=== PATIENT | male | born 1945 | race Caucasian/White ===

== ENCOUNTER 2025-06-30 08:16 | Observation (INO) ==
[2025-06-30] MEDS ORDERED: KETAMINE HCL ONE (08:20)
--- NOTE | 2025-06-30 09:37 | EKG ---
Test Reason : pre-op Blood Pressure : */* mmHG Vent. Rate : 78 BPM Atrial Rate : 78 BPM P-R Int : 262 ms QRS Dur : 84 ms QT Int : 402 ms P-R-T Axes : 71 75 67 degrees QTc Int : 458 ms Sinus rhythm with 1st degree AV block Otherwise normal ECG No previous ECGs available Confirmed by Tushar Lauren MD ([id number]) on 06/30/2025 10:55:09 AM Referred By: Confirmed By: Tushar Lauren MD
[2025-06-30 09:47] VITALS: BMI 21.0
[2025-06-30 09:59] LABS: MEAN PLATELET VOLUME 7.6 fL (7.4-11.0); RED CELL DISTRIBUTION WIDTH 14.8 % (11.6-16.5)
[2025-06-30 10:03] LABS: INR 1.03 (0.8-1.3)
[2025-06-30] MEDS ORDERED: ZANAFLEX PO PRN (10:03)
[2025-06-30] MEDS ORDERED: ALPRAZOLAM ODT PO PRN (10:03)
[2025-06-30 10:08] LABS: COR CA(FOR HYPOALB) 9.5 mg/dL (8.5-10.1); CREATININE 1.09 mg/dL (0.70-1.30); eGFR NON BLACK RACES > 60 (>60)
[2025-06-30] MEDS ORDERED: PROVENTIL NEB TX 0.083% 2.5MG/ 3ML NEB PRN (10:24)
[2025-06-30] MEDS: LR 1,000 ML IV 1,000 ML IV SCH (11:04)
[2025-06-30] MEDS: LOVENOX INJ 60 MG SYR SC SCH (11:10)
--- NOTE | 2025-06-30 11:13 | DR.CONSULT ---
CONSULT Consultation for Day of: Date: 06/30/25 Chief Complaint Chief Complaint: pre-op clearance Allergies Allergies Allergy/AdvReac Type Severity Reaction Status Date / Time Iodinated Contrast Media AdvReac Unknown Verified 06/30/25 09:26 History of Present Illness History of Present Illness: Patient is a 80-year-old male with a past medical history of peripheral vascular disease, COPD, tobacco use, depression, anxiety and chronic pain was directly admitted by vascular due to abnormal CTA lower extremity showing occlusion. Patient will be requiring vascular intervention in both lower extremities. He denies having any history of CAD or CVA. He does have emphysema, uses nebulizer and inhaler. Denies any cardiopulmonary symptoms including chest pain or shortness of breath. He does report leg pain with exertion. Medicine consulted for preop clearance. Plan: Will order routine labs, EKG and chest x-ray. Consult cardiology for clearance. Intervention planned as per vascular. Medications Home Medications: Iodinated Contrast Media Adverse Reaction (Unknown, Verified 06/30/25 09:26) CONTINUE taking the following medications tizanidine 4 mg tablet 4 mg PO QDAY PRN 06/30/25 [History] Review of Systems Constitutional: No Symptoms Reported Eyes: No Symptoms Reported ENT: No Symptoms Reported Respiratory: No Symptoms Reported Cardiovascular: No Symptoms Reported Gastrointestinal: No Symptoms Reported Genitourinary: No Symptoms Reported Musculoskeletal: Leg Pain Skin: No Symptoms Reported Neurological: No Symptoms Reported Physical Exam Vital Signs: Vital Signs Temperature 97.7 F Pulse Rate [Left] 89 Respiratory Rate 19 Blood Pressure [Right Arm] 183/77 O2 Sat by Pulse Oximetry 98 Oriented: Normal Respiratory: Clear Throughout Cardiovascular: Normal Auscultation: Bowel Sounds: Normal Palpation: Normal Tenderness: Normal Skin: Normal Musculoskeletal: Normal Psychiatric: Normal Mood Description: Calm Affect: Normal Speech Pattern: Clear and Appropriate Plan (1) PVD (peripheral vascular disease): Status: Acute (2) Tobacco use: Status: Acute (3) BPH (benign prostatic hyperplasia): Status: Chronic Qualifiers: Lower urinary tract symptom presence: unspecified whether lower urinary tract symptoms present Qualified Code(s): N40.0 - Benign prostatic hyperplasia without lower urinary tract symptoms (4) Chronic obstructive pulmonary disease: Status: Chronic Qualifiers: COPD type: unspecified COPD Qualified Code(s): J44.9 - Chronic obstructive pulmonary disease, unspecified
--- NOTE | 2025-06-30 12:10 | RAD ---
EXAM: CHEST, 1 VIEW HISTORY: PRE-OP; COMPARISON: No relevant prior studies were available for comparison at the time of interpretation. TECHNIQUE: CHEST, 1 VIEW FINDINGS: Chest: Lines and tubes: None Mediastinum: Cardiac and mediastinal shadow is within normal limits for size and contour. Pulmonary vessels: No pulmonary vascular congestion. Lung comer: Interstitial markings and hyperinflation of the lungs with diaphragmatic flattening. Increased biapical predominant interstitial lung markings Pleura: No effusion. No pneumothorax. Bones and soft tissues: No acute osseous or soft tissue abnormality. IMPRESSION: 1. Findings suggest interstitial lung disease THIS IS AN ELECTRONICALLY VERIFIED FINAL REPORT 06/30/2025 12:06 PM - Electronically signed by Adan De León MD
[2025-06-30] MEDS: CATAPRES TAB 0.1 MG PO ONE (12:36)
--- NOTE | 2025-06-30 13:16 | DR.CONSULT ---
CONSULT Consultation for Day of: Date: 06/30/25 Chief Complaint Chief Complaint: preop clearance Allergies Allergies Allergy/AdvReac Type Severity Reaction Status Date / Time Iodinated Contrast Media AdvReac Unknown Verified 06/30/25 09:26 History of Present Illness History of Present Illness: 80 yo male- admitted for severe B claudication- cta shows severe PVD- smoked 2 plus packs/day since teenager- did stop smoking month ago- on no asa/no chol pill/no bp pill- states cuts his grass with pushmower ( 1/2 acre)- limited by claudication/sob no CP Social History Type of Tobacco Use: Cigarettes Alcohol Use: None Drug Use: None Medications Home Medications: Iodinated Contrast Media Adverse Reaction (Unknown, Verified 06/30/25 09:26) CONTINUE taking the following medications tizanidine 4 mg tablet 4 mg PO QDAY PRN 06/30/25 [History] Physical Exam Vital Signs: Vital Signs Temperature 97.8 F Temperature 97.8 F Temperature 97.7 F Pulse Rate [Left] 73 Pulse Rate [Left] 73 Pulse Rate [Left] 89 Respiratory Rate 18 Respiratory Rate 18 Respiratory Rate 19 Blood Pressure [Right Arm] 140/70 Blood Pressure [Right Arm] 160/82 Blood Pressure [Right Arm] 183/77 O2 Sat by Pulse Oximetry 100 O2 Sat by Pulse Oximetry 100 O2 Sat by Pulse Oximetry 98 alert ox3 B bruits rrr jose no edema/poor pulses Labs: wbc 6.1 hct 41 bnp 106 cr 1.09 k 4.3 ldl 12/09 81 hdl 78 CXR: interstitial lung disease/copd EKG: nsr first degree avb echo/carotid pending Plan (1) PVD (peripheral vascular disease): Status: Acute Narrative Support Text: preop clearance: high risk not prohibitive Plan: check echo/carotids- add asa/statin and 2 antianginals to protect heart- will not use BB due to lung issues (2) Tobacco use: Status: Acute (3) Chronic obstructive pulmonary disease: Status: Chronic Qualifiers: COPD type: unspecified COPD Qualified Code(s): J44.9 - Chronic obstructive pulmonary disease, unspecified (4) Interstitial lung disease: Status: Acute (5) Hyperlipidemia: Status: Acute Narrative Support Text: pvd-add statin (6) Preop cardiovascular exam: Status: Acute
[2025-06-30] MEDS: ASPIRIN 81 MG CHEWTAB PO SCH (13:36)
[2025-06-30] MEDS: NORVASC TAB 2.5 MG PO SCH (13:36)
[2025-06-30] MEDS: NORVASC TAB 2.5 MG ONE (13:39)
[2025-06-30] MEDS: NITRODUR PATCH 0.2 MG/HR TD ONE (14:27)
--- NOTE | 2025-06-30 15:50 | DR.UPDATE ---
H&P UPDATE (1) PVD (peripheral vascular disease): History and Physical Update: History and Physical reviewed and patient examined. Changes noted: NO Yes with the following: (2) Tobacco use: History and Physical Update: History and Physical reviewed and patient examined. Changes noted: NO Yes with the following: (3) Chronic obstructive pulmonary disease: History and Physical Update: History and Physical reviewed and patient examined. Changes noted: NO Yes with the following: (4) Interstitial lung disease: History and Physical Update: History and Physical reviewed and patient examined. Changes noted: NO Yes with the following: (5) Hyperlipidemia: History and Physical Update: History and Physical reviewed and patient examined. Changes noted: NO Yes with the following: (6) Preop cardiovascular exam: History and Physical Update: History and Physical reviewed and patient examined. Changes noted: NO Yes with the following: Review Yes Any changes to H&P?: No Changes noted:: Patient known to have bilateral external iliac artery occlusions and bilateral superficial femoral artery occlusions and was scheduled to be admitted last week but did not show up for admission. He showed up today for admission and evaluation and treatment of these vascular problems . He has had no change in his health or physical exam since then. Patient was examined?: Yes
[2025-06-30] MEDS: NITRODUR PATCH 0.2 MG/HR ONE (17:41)
[2025-06-30] MEDS: PRAVACHOL PO SCH (20:04)
[2025-06-30] MEDS: REMOVE NITROGLYCERIN PATCH XX SCH (20:32)
[2025-07-01 04:49] LABS: MEAN PLATELET VOLUME 7.7 fL (7.4-11.0); RED CELL DISTRIBUTION WIDTH 15.3 % (11.6-16.5)
[2025-07-01 04:55] LABS: COR CA(FOR HYPOALB) 9.3 mg/dL (8.5-10.1); CREATININE 0.96 mg/dL (0.70-1.30); eGFR NON BLACK RACES > 60 (>60)
[2025-07-01] MEDS: FLOMAX PO SCH (08:19)
[2025-07-01] MEDS: LEXAPRO PO SCH (08:19)
[2025-07-01] MEDS: LEXAPRO ONE (08:21)
[2025-07-01] MEDS: NORVASC TAB 2.5 MG ONE (08:21)
--- NOTE | 2025-07-01 09:51 | PCM.PROG ---
Progress Note Progress Note for Day of Date of Exam: 07/01/25 Subjective Subjective: Patient seen at bedside, no acute events overnight. He is currently admitted for vascular intervention of severe PVD. Cardio consulted for clearance, echo and carotid US done this morning. Patient denies any complaints. Labs/imaging reviewed: -WBC 5.9 Hgb 12.3 Plt 239 K 4.2 -CXR: ILD Plan: follow echo and carotid US results. Monitor BP. Follow cardio and vascular recommendations. Continue home meds. Cardio added asa, statin and norvasc. Replace electrolytes as per protocol. Monitor AM labs/imaging. Past Medical Family Social History Allergies: Allergies Iodinated Contrast Media Adverse Reaction (Unknown, Verified 06/30/25 09:26) PT STATED HE FELT LIKE HE WAS DYING AFTER RECEIVING CONTRAST FOR CTA. Vital Signs and I&O's Vital Signs: Vital Signs Temperature 97.4 F Temperature 98 F Pulse Rate [Left] 86 Pulse Rate [Left] 79 Respiratory Rate 19 Respiratory Rate 18 Blood Pressure [Right Arm] 137/70 Blood Pressure [Right Arm] 123/62 O2 Sat by Pulse Oximetry 99 O2 Sat by Pulse Oximetry 94 Intake and Output: Intake & Output 06/28/25 06/29/25 06/30/25 07/01/25 23:59 23:59 23:59 23:59 Intake Total 1000 / 1000 602 / 602 Balance 1000 / 1000 602 / 602 Physical Exam Oriented: Normal Respiratory: Generalized and Diminished Cardiovascular: Normal Auscultation: Bowel Sounds: Normal Palpation: Normal Tenderness: Normal Skin: Normal Musculoskeletal: Normal Psychiatric: Normal Mood Description: Calm Affect: Normal Speech Pattern: Clear and Appropriate Laboratory and Diagnostics 07/01/25 04:30 07/01/25 04:30 Labs: Laboratory WBC 5.9 X10^3/uL (3.6-10.0) 07/01/25 04:30 RBC 4.47 X10^6/uL (4.7-6.0) L 07/01/25 04:30 Hgb 12.3 g/dL (13.5-18.0) L 07/01/25 04:30 Hct 36.4 % (42.0-54.0) L 07/01/25 04:30 MCV 81.4 fL (80.0-100.0) 07/01/25 04:30 MCH 27.4 pg (27.0-34.0) 07/01/25 04:30 MCHC 33.7 g/dL (33.0-35.0) 07/01/25 04:30 RDW 15.3 % (11.6-16.5) 07/01/25 04:30 Plt Count 239 X10^3/uL (150.0-450.0) 07/01/25 04:30 MPV 7.7 fL (7.4-11.0) 07/01/25 04:30 Neut % (Auto) 73.0 % (42.0-75.0) 07/01/25 04:30 Lymph % (Auto) 12.7 % (21.0-51.0) L 07/01/25 04:30 [place] % (Auto) 8.7 % (0.0-13.0) 07/01/25 04:30 Eos % (Auto) 3.9 % (0.9-2.9) H 07/01/25 04:30 Baso % (Auto) 1.7 % (0.2-1.0) H 07/01/25 04:30 Neut # (Auto) 4.3 x10^3/uL (2.2-4.8) 07/01/25 04:30 Lymph # (Auto) 0.8 X10^3/uL (1.3-2.9) L 07/01/25 04:30 [place] # (Auto) 0.5 x10^3/uL (0.3-0.8) 07/01/25 04:30 Eos # (Auto) 0.2 x10^3/uL (0.0-0.2) 07/01/25 04:30 Baso # (Auto) 0.1 X10^3/uL (0.0-0.1) 07/01/25 04:30 Absolute Nucleated RBC 0.2 /100WBC 07/01/25 04:30 PT 13.6 SECONDS (11.8-14.3) 06/30/25 09:46 INR Target Range - 06/30/25 09:46 INR 1.03 (0.8-1.3) 06/30/25 09:46 APTT 30.5 SECONDS (22.9-36.5) 06/30/25 09:46 PTT Comment - 06/30/25 09:46 Sodium 136 mmol/L (136-145) 07/01/25 04:30 Corrected Sodium TNP 07/01/25 04:30 Potassium 4.2 mmol/L (3.5-5.1) 07/01/25 04:30 Chloride 103 mmol/L (98-107) 07/01/25 04:30 Carbon Dioxide 26.2 mmol/L (21-32) 07/01/25 04:30 BUN 7 mg/dL (7-18) 07/01/25 04:30 Creatinine 0.96 mg/dL (0.70-1.30) 07/01/25 04:30 Est GFR (MDRD) Af Amer > 60 (>60) 07/01/25 04:30 Est GFR (MDRD) Non-Af > 60 (>60) 07/01/25 04:30 Glucose 86 mg/dL (65-99) 07/01/25 04:30 Calcium 8.1 mg/dL (8.5-10.1) L 07/01/25 04:30 Corrected Calcium 9.3 mg/dL (8.5-10.1) 07/01/25 04:30 Total Bilirubin 0.70 mg/dL (0.2-1.0) 07/01/25 04:30 AST 27 Units/L (15-37) 07/01/25 04:30 ALT 14 Units/L (12-78) 07/01/25 04:30 Alkaline Phosphatase 102 Units/L (46-116) 07/01/25 04:30 B-Natriuretic Peptide 106 pg/mL (0-79) H 06/30/25 09:46 Total Protein 5.8 g/dL (6.4-8.2) L 07/01/25 04:30 Albumin 2.5 g/dL (3.4-5.0) L 07/01/25 04:30 Globulin 3.3 g/dL (2.5-4.5) 07/01/25 04:30 Albumin/Globulin Ratio 0.8 Ratio (1.1-2.1) L 07/01/25 04:30 Plan (1) PVD (peripheral vascular disease): Status: Acute (2) Tobacco use: Status: Acute (3) Chronic obstructive pulmonary disease: Status: Chronic Qualifiers: COPD type: unspecified COPD Qualified Code(s): J44.9 - Chronic obstructive pulmonary disease, unspecified (4) Interstitial lung disease: Status: Acute (5) Hyperlipidemia: Status: Acute (6) Preop cardiovascular exam: Status: Acute
--- NOTE | 2025-07-01 12:38 | NOTE.SOAP ---
Soap Note Note for Day of Date of Exam: 07/01/25 Subjective Data Subjective Data: 10-year-old male heavy smoker who admitted with rest pain both lower extremities noted by CT angiogram to have severe disease of both external iliac arteries as well as occlusion of both superficial femoral artery. He has been seen by cardiology and felt to be high risk but otherwise no additional testing required. Cardio started on aspirin, antianginals and amlodipine plus a statin. Has refused Lovenox at this time. He is taking aspirin daily. Objective Data Temperature: 97.4 F Pulse Rate: 93 Respiratory Rate: 19 Blood Pressure: 156/67 O2 Sat by Pulse Oximetry: 97 Objective Data: No palpable pulses either groin or either ankle. Assessment Assessment: Severe disease bilateral external iliac arteries, bilateral supe rficial artery occlusions with significant ischemia both lower extremities Plan Plan: Plan bilateral iliac artery stenting tomorrow. Patient will be discharged after that and we will plan sequential interventions of the superficial femoral artery occlusions to be done at a later time.
[2025-07-01] MEDS: HIBICLENS WASH EXT ONE (20:27)
[2025-07-02 04:52] LABS: MEAN PLATELET VOLUME 7.6 fL (7.4-11.0); RED CELL DISTRIBUTION WIDTH 15.0 % (11.6-16.5)
[2025-07-02 05:02] LABS: COR CA(FOR HYPOALB) 9.4 mg/dL (8.5-10.1); CREATININE 0.87 mg/dL (0.70-1.30); eGFR NON BLACK RACES > 60 (>60)
[2025-07-02] MEDS: LR 1,000 ML IV 1,000 ML IV ONE ×2 (07:15→12:31)
[2025-07-02] MEDS: NS 100 ML IV 100 ML ONE (07:16)
[2025-07-02] MEDS: VERSED ONE (07:17)
[2025-07-02] MEDS: ANCEF VIAL 1 GRAM ONE (07:17)
[2025-07-02] MEDS: FENTANYL VIAL INJ 100 mcg ONE (07:18)
[2025-07-02] MEDS: DIPRIVAN VIAL 20 ML ONE ×2 (07:18→09:38)
[2025-07-02] MEDS: OFIRMEV IV 1000 MG VIAL 1,000 MG/100 ML VIAL IV ONE (07:18)
[2025-07-02] MEDS: PRECEDEX INJ VIAL ONE (07:18)
[2025-07-02] MEDS: HEPARIN SODIUM INJ 5000 UNITS ONE ×2 (07:19→09:35)
[2025-07-02] MEDS: XYLOCAINE 2 % (PLAIN) ONE (07:22)
[2025-07-02] MEDS: DECADRON INJ ONE (07:26)
[2025-07-02] MEDS: ZOFRAN INJ 4 MG VIAL ONE (07:26)
[2025-07-02] MEDS: REGLAN INJ 10 MG VIAL ONE (07:26)
[2025-07-02] MEDS: PEPCID 20 MG VIAL ONE (07:28)
[2025-07-02] MEDS: LR 1,000 ML IV 500 ML IV PRN (07:30)
[2025-07-02] MEDS: DUONEB 0.5 MG/3 MG (3 mL) NEB ONE (07:30)
[2025-07-02] MEDS: ANCEF VIAL 1 GRAM IV PRN (07:42)
[2025-07-02] MEDS ORDERED: XYLOCAINE 2 % (PLAIN) PRN (07:46)
[2025-07-02] MEDS: DIPRIVAN VIAL 100 ML IVP PRN (07:47)
[2025-07-02] MEDS: KETAMINE HCL IVP PRN (07:47)
[2025-07-02] MEDS: PRECEDEX INJ VIAL IVP PRN (07:47)
[2025-07-02] MEDS: ZOFRAN INJ 4 MG VIAL IVP PRN (07:49)
[2025-07-02] MEDS: VERSED IVP PRN (07:54)
[2025-07-02] MEDS: FENTANYL VIAL INJ 100 mcg IVP PRN ×2 (07:56→09:21)
[2025-07-02] MEDS: PEPCID 20 MG VIAL IVP PRN (08:00)
[2025-07-02] MEDS: REGLAN INJ 10 MG VIAL IVP PRN (08:03)
[2025-07-02] MEDS: EPHEDRINE SULFATE INJ ONE (08:03)
[2025-07-02] MEDS: EPHEDRINE SULFATE INJ IVP PRN ×2 (08:04→09:28)
[2025-07-02] MEDS: NEO-SYNEPHRINE INJ ONE (08:06)
[2025-07-02] MEDS: VISIPAQUE 50 ML ONE (08:10)
[2025-07-02] MEDS: HEPARIN 1,000 UNIT/500 ML-NS 3,000 UNIT/1,500 ML IV.SOLN ONE (08:10)
[2025-07-02] MEDS: VISIPAQUE 100 ML ONE ×2 (08:10→10:08)
[2025-07-02] MEDS: MARCAINE 0.5% ONE (08:10)
[2025-07-02] MEDS: NEO-SYNEPHRINE INJ IVP PRN ×2 (08:16→09:28)
[2025-07-02] MEDS: HESPAN IV IN NS 500 ML IV ONE (09:27)
[2025-07-02] MEDS: HEPARIN SODIUM INJ 5000 UNITS IVP PRN (09:35)
[2025-07-02] MEDS ORDERED: BENADRYL INJ 50 MG VIAL IVP PRN (09:53)
[2025-07-02] MEDS ORDERED: BARHEMSYS INJ IVP PRN (09:53)
[2025-07-02] MEDS ORDERED: DILAUDID INJ IVP PRN (09:53)
[2025-07-02] MEDS ORDERED: ZOFRAN INJ 4 MG VIAL IVP PRN (09:53)
[2025-07-02] MEDS: NS 1,000 ML IV 1,000 ML ONE (09:53)
[2025-07-02] MEDS: PROTAMINE SULFATE 50 MG VIAL ONE (10:10)
[2025-07-02] MEDS: PROTAMINE SULFATE 50 MG VIAL IVP PRN (10:11)
--- NOTE | 2025-07-02 10:45 | OR.IMMED ---
IMMEDIATE POST-OP NOTE Immediate Post-Op Note Date of surgery/procedure: 07/02/25 Pre-Op Diagnosis: Critical ischemia both lower extremities. Bilateral external iliac artery occlusions Post-Op Diagnosis: Same Procedure: Approach from the left brachial artery, aortogram, bilateral lower extremity arteriiograms, stenting of the right external and right common iliac artery, stenting of the left external iliac artery Description of Procedure: dictated Surgeon/Supervisor Special Education: Gerry Findings: Bilateral external iliac artery occlusions, patent right common femo ral artery, occluded left common femoral artery, bilateral superficial artery occlusions with reconstitution of the popliteal arteries below the knees bilaterally with two-vessel runoff bilateral Estimated Blood Loss: 200cc Complications: none Discharge Progress Notes: To PACU then to floor. Sequentially removed tibial band around the puncture site of the left brachial artery puncture
[2025-07-02] MEDS: LR 1,000 ML IV 1,000 ML IV SCH (11:33)
[2025-07-02] MEDS ORDERED: LOPRESSOR INJ 5 MG AMP ONE (14:23)
[2025-07-02] MEDS: LOPRESSOR INJ 5 MG AMP IVP ONE (14:31)
--- NOTE | 2025-07-02 14:33 | EKG ---
Test Reason : tachycardia Blood Pressure : */* mmHG Vent. Rate : 90 BPM Atrial Rate : 90 BPM P-R Int : 266 ms QRS Dur : 86 ms QT Int : 378 ms P-R-T Axes : 71 56 78 degrees QTc Int : 462 ms Sinus rhythm with 1st degree AV block Nonspecific T wave abnormality Prolonged QT Abnormal ECG When compared with ECG of 30-JUN-2025 09:35, No significant change was found Confirmed by Tushar Lauren MD ([id number]) on 07/02/2025 2:36:51 PM Referred By: Confirmed By: Tushar Lauren MD
[2025-07-02] MEDS: NS 500 ML IV 500 ML IV ONE (15:02)
--- NOTE | 2025-07-02 17:29 | W.DIS.FURT ---
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 Patient admitted on Sunday for evaluation and was seen by cardiology and cleared him for procedure. He was started on medications for blood pressure and a statin for his cholesterol. He was taken to the operating suite on July 02 where he underwent bilateral external iliac stenting. He will need superficial femoral artery atherectomy and possible drug-eluting balloon angioplasty, possible stenting .Those to be done sequentially in the future. He may still require left open femoral endarterectomy and patch angioplasty as well. Postprocedure he had 1 small run of afibrillation treated with labetalol but the internal medicine design sales consultant felt that he could be discharged home safely. He will be discharged home on his usual medications plus aspirin 80 mg daily. Will follow-up with Dr. Gagan Garrett in 1 week. I have encouraged him not to continue smoking. Vital Signs: Vital Signs (72 hours) 06/30/25 08:40 06/30/25 08:40 06/30/25 10:33 Temperature 97.7 F Pulse Rate Pulse Rate [Left] 89 Respiratory Rate 19 Blood Pressure Blood Pressure [Left Arm] Blood Pressure [Right Arm] 183/77 O2 Sat by Pulse Oximetry 98 Oxygen Delivery Method Room Air Room Air Room Air Oxygen Flow Rate 06/30/25 11:45 06/30/25 13:04 06/30/25 15:02 Temperature 97.8 F 97.8 F 97.4 F L Pulse Rate Pulse Rate [Left] 73 73 73 Respiratory Rate 18 18 18 Blood Pressure Blood Pressure [Left Arm] Blood Pressure [Right Arm] 160/82 140/70 119/57 O2 Sat by Pulse Oximetry 100 100 98 Oxygen Delivery Method Room Air Room Air Room Air Oxygen Flow Rate 06/30/25 19:00 06/30/25 20:00 07/01/25 00:00 Temperature 97.5 F L 97.9 F Pulse Rate Pulse Rate [Left] 71 77 Respiratory Rate 18 17 Blood Pressure Blood Pressure [Left Arm] Blood Pressure [Right Arm] 130/67 147/67 O2 Sat by Pulse Oximetry 99 97 Oxygen Delivery Method Room Air Room Air Room Air Oxygen Flow Rate 07/01/25 04:00 07/01/25 07:00 07/01/25 07:38 Temperature 98 F 97.4 F L Pulse Rate Pulse Rate [Left] 79 86 Respiratory Rate 18 19 Blood Pressure Blood Pressure [Left Arm] Blood Pressure [Right Arm] 123/62 137/70 O2 Sat by Pulse Oximetry 94 L 99 Oxygen Delivery Method Room Air Room Air Room Air Oxygen Flow Rate 07/01/25 11:48 07/01/25 12:37 07/01/25 15:37 Temperature 97.4 F L 97.4 F L 97.7 F Pulse Rate 93 H Pulse Rate [Left] 93 H 79 Respiratory Rate 19 19 19 Blood Pressure 156/67 Blood Pressure [Left Arm] Blood Pressure [Right Arm] 156/67 149/67 O2 Sat by Pulse Oximetry 97 97 96 Oxygen Delivery Method Room Air Room Air Oxygen Flow Rate 07/01/25 19:00 07/01/25 20:00 07/01/25 20:20 Temperature 97.5 F L Pulse Rate Pulse Rate [Left] 78 Respiratory Rate 18 Blood Pressure Blood Pressure [Left Arm] 158/73 Blood Pressure [Right Arm] O2 Sat by Pulse Oximetry 97 Oxygen Delivery Method Room Air Room Air Room Air Oxygen Flow Rate 07/02/25 00:00 07/02/25 04:00 07/02/25 07:00 Temperature 97.6 F 97.6 F Pulse Rate Pulse Rate [Left] 89 86 Respiratory Rate 18 18 Blood Pressure Blood Pressure [Left Arm] 123/58 127/61 Blood Pressure [Right Arm] O2 Sat by Pulse Oximetry 95 95 Oxygen Delivery Method Room Air Room Air Room Air Oxygen Flow Rate 07/02/25 07:19 07/02/25 10:25 07/02/25 10:30 Temperature 97.6 F Pulse Rate 86 93 H 80 Pulse Rate [Left] Respiratory Rate 18 18 17 Blood Pressure 157/86 114/57 116/56 Blood Pressure [Left Arm] Blood Pressure [Right Arm] O2 Sat by Pulse Oximetry 95 97 99 Oxygen Delivery Method Room Air Nasal Cannula Nasal Cannula Oxygen Flow Rate 07/02/25 10:35 07/02/25 10:35 07/02/25 10:40 Temperature 97.6 F 98.2 F Pulse Rate 80 79 80 Pulse Rate [Left] Respiratory Rate 18 17 18 Blood Pressure 96/50 96/50 85/48 Blood Pressure [Left Arm] Blood Pressure [Right Arm] O2 Sat by Pulse Oximetry 99 Oxygen Delivery Method Nasal Cannula Oxygen Flow Rate 07/02/25 10:40 07/02/25 10:45 07/02/25 10:45 Temperature 98.2 F Pulse Rate 82 85 85 Pulse Rate [Left] Respiratory Rate 17 17 17 Blood Pressure 85/48 111/54 111/54 Blood Pressure [Left Arm] Blood Pressure [Right Arm] O2 Sat by Pulse Oximetry 99 99 Oxygen Delivery Method Nasal Cannula Nasal Cannula Oxygen Flow Rate 07/02/25 10:50 07/02/25 10:55 07/02/25 10:55 Temperature 97.8 F Pulse Rate 84 84 83 Pulse Rate [Left] Respiratory Rate 17 18 16 Blood Pressure 110/54 97/51 101/54 Blood Pressure [Left Arm] Blood Pressure [Right Arm] O2 Sat by Pulse Oximetry 97 97 Oxygen Delivery Method Nasal Cannula Nasal Cannula Oxygen Flow Rate 07/02/25 11:00 07/02/25 11:05 07/02/25 11:05 Temperature 98.2 F 98.0 F 98.2 F Pulse Rate 84 86 86 Pulse Rate [Left] Respiratory Rate 18 18 18 Blood Pressure 95/50 97/51 95/55 Blood Pressure [Left Arm] Blood Pressure [Right Arm] O2 Sat by Pulse Oximetry 99 99 Oxygen Delivery Method Nasal Cannula Nasal Cannula Oxygen Flow Rate 07/02/25 11:10 07/02/25 11:15 07/02/25 11:20 Temperature Pulse Rate 84 86 86 Pulse Rate [Left] Respiratory Rate 18 18 18 Blood Pressure 97/51 99/52 90/53 Blood Pressure [Left Arm] Blood Pressure [Right Arm] O2 Sat by Pulse Oximetry 99 99 99 Oxygen Delivery Method Nasal Cannula Nasal Cannula Nasal Cannula Oxygen Flow Rate 07/02/25 11:25 07/02/25 11:25 07/02/25 11:30 Temperature 98.0 F Pulse Rate 85 85 90 Pulse Rate [Left] Respiratory Rate 18 17 17 Blood Pressure 94/51 94/51 114/62 Blood Pressure [Left Arm] Blood Pressure [Right Arm] O2 Sat by Pulse Oximetry 99 99 Oxygen Delivery Method Nasal Cannula Nasal Cannula Oxygen Flow Rate 07/02/25 11:40 07/02/25 11:45 07/02/25 12:00 Temperature 98.0 F 97.8 F Pulse Rate 95 H Pulse Rate [Left] 105 H 100 H Respiratory Rate 17 20 18 Blood Pressure 128/60 Blood Pressure [Left Arm] 128/60 144/68 Blood Pressure [Right Arm] O2 Sat by Pulse Oximetry 99 98 97 Oxygen Delivery Method Nasal Cannula Nasal Cannula Nasal Cannula Oxygen Flow Rate 2 2 07/02/25 12:15 07/02/25 12:30 07/02/25 12:45 Temperature 98.4 F Pulse Rate Pulse Rate [Left] 100 H 96 H 110 H Respiratory Rate 18 20 20 Blood Pressure Blood Pressure [Left Arm] 140/60 119/56 117/60 Blood Pressure [Right Arm] O2 Sat by Pulse Oximetry 97 97 98 Oxygen Delivery Method Nasal Cannula Nasal Cannula Nasal Cannula Oxygen Flow Rate 2 2 2 07/02/25 14:15 07/02/25 14:20 07/02/25 14:21 Temperature Pulse Rate Pulse Rate [Left] 113 H 157 H 160 H Respiratory Rate Blood Pressure Blood Pressure [Left Arm] 127/57 97/58 Blood Pressure [Right Arm] O2 Sat by Pulse Oximetry 98 99 99 Oxygen Delivery Method Nasal Cannula Nasal Cannula Nasal Cannula Oxygen Flow Rate 2 2 2 07/02/25 14:23 07/02/25 14:30 07/02/25 14:34 Temperature Pulse Rate Pulse Rate [Left] 145 H 94 H 89 Respiratory Rate 16 Blood Pressure Blood Pressure [Left Arm] 104/57 116/62 109/56 Blood Pressure [Right Arm] O2 Sat by Pulse Oximetry 98 99 100 Oxygen Delivery Method Nasal Cannula Nasal Cannula Nasal Cannula Oxygen Flow Rate 2 2 2 07/02/25 14:45 07/02/25 15:45 07/02/25 16:04 Temperature Pulse Rate Pulse Rate [Left] 86 86 94 H Respiratory Rate 20 Blood Pressure Blood Pressure [Left Arm] 114/55 Blood Pressure [Right Arm] O2 Sat by Pulse Oximetry 100 100 Oxygen Delivery Method Nasal Cannula Nasal Cannula Oxygen Flow Rate 2 2 07/02/25 16:45 Temperature 98.1 F Pulse Rate Pulse Rate [Left] 93 H Respiratory Rate 20 Blood Pressure Blood Pressure [Left Arm] 124/68 Blood Pressure [Right Arm] O2 Sat by Pulse Oximetry 100 Oxygen Delivery Method Nasal Cannula Oxygen Flow Rate 2 Labs: Laboratory Last Values WBC 4.7 X10^3/uL (3.6-10.0) 07/02/25 04:36 RBC 4.31 X10^6/uL (4.7-6.0) L 07/02/25 04:36 Hgb 12.0 g/dL (13.5-18.0) L 07/02/25 04:36 Hct 35.0 % (42.0-54.0) L 07/02/25 04:36 MCV 81.3 fL (80.0-100.0) 07/02/25 04:36 MCH 27.9 pg (27.0-34.0) 07/02/25 04:36 MCHC 34.3 g/dL (33.0-35.0) 07/02/25 04:36 RDW 15.0 % (11.6-16.5) 07/02/25 04:36 Plt Count 241 X10^3/uL (150.0-450.0) 07/02/25 04:36 MPV 7.6 fL (7.4-11.0) 07/02/25 04:36 Neut % (Auto) 63.5 % (42.0-75.0) 07/02/25 04:36 Lymph % (Auto) 18.8 % (21.0-51.0) L 07/02/25 04:36 [place] % (Auto) 10.6 % (0.0-13.0) 07/02/25 04:36 Eos % (Auto) 5.1 % (0.9-2.9) H 07/02/25 04:36 Baso % (Auto) 2.0 % (0.2-1.0) H 07/02/25 04:36 Neut # (Auto) 3.0 x10^3/uL (2.2-4.8) 07/02/25 04:36 Lymph # (Auto) 0.9 X10^3/uL (1.3-2.9) L 07/02/25 04:36 [place] # (Auto) 0.5 x10^3/uL (0.3-0.8) 07/02/25 04:36 Eos # (Auto) 0.2 x10^3/uL (0.0-0.2) 07/02/25 04:36 Baso # (Auto) 0.1 X10^3/uL (0.0-0.1) 07/02/25 04:36 Absolute Nucleated RBC 0.1 /100WBC 07/02/25 04:36 PT 13.6 SECONDS (11.8-14.3) 06/30/25 09:46 INR Target Range - 06/30/25 09:46 INR 1.03 (0.8-1.3) 06/30/25 09:46 APTT 30.5 SECONDS (22.9-36.5) 06/30/25 09:46 PTT Comment - 06/30/25 09:46 Sodium 136 mmol/L (136-145) 07/02/25 04:36 Corrected Sodium TNP 07/02/25 04:36 Potassium 3.8 mmol/L (3.5-5.1) 07/02/25 04:36 Chloride 104 mmol/L (98-107) 07/02/25 04:36 Carbon Dioxide 25.8 mmol/L (21-32) 07/02/25 04:36 BUN 5 mg/dL (7-18) L 07/02/25 04:36 Creatinine 0.87 mg/dL (0.70-1.30) 07/02/25 04:36 Est GFR (MDRD) Af Amer > 60 (>60) 07/02/25 04:36 Est GFR (MDRD) Non-Af > 60 (>60) 07/02/25 04:36 Glucose 93 mg/dL (65-99) 07/02/25 04:36 Calcium 8.1 mg/dL (8.5-10.1) L 07/02/25 04:36 Corrected Calcium 9.4 mg/dL (8.5-10.1) 07/02/25 04:36 Total Bilirubin 0.50 mg/dL (0.2-1.0) 07/02/25 04:36 AST 26 Units/L (15-37) 07/02/25 04:36 ALT 16 Units/L (12-78) 07/02/25 04:36 Alkaline Phosphatase 100 Units/L (46-116) 07/02/25 04:36 B-Natriuretic Peptide 106 pg/mL (0-79) H 06/30/25 09:46 Total Protein 5.6 g/dL (6.4-8.2) L 07/02/25 04:36 Albumin 2.4 g/dL (3.4-5.0) L 07/02/25 04:36 Globulin 3.2 g/dL (2.5-4.5) 07/02/25 04:36 Albumin/Globulin Ratio 0.8 Ratio (1.1-2.1) L 07/02/25 04:36 Blood Type O POSITIVE 07/02/25 07:31 Antibody Screen Negative 07/02/25 07:31 Reason For Visit: BILATERAL ISHEMIA, TO LOWER EXTREMETIES Discharge Date Discharge Date: 07/02/25 Discharge Diagnosis All Active Problems (Updated 06/30/25 @ 13:14 by MARGARET MARIN MD) Preop cardiovascular exam (Acute) Hyperlipidemia (Acute) Interstitial lung disease (Acute) PVD (peripheral vascular disease) (Acute) Dermatitis (Acute) Annual physical exam (Acute) Tobacco use (Acute) BPH (benign prostatic hyperplasia) (Chronic) Chronic obstructive pulmonary disease (Chronic) Plan of Treatment: Continue with present treatment and follow up plan. Pt is to keep follow up appointment as instructed and take medications as ordered. Discharge Medications Discharge Medications: Iodinated Contrast Media Adverse Reaction (Unknown, Verified 06/30/25 09:26) CONTINUE taking the following medications tizanidine 4 mg tablet 4 mg PO QDAY PRN 06/30/25 [History] albuterol sulfate 90 mcg/actuation aerosol inhaler 90 mcg inhalation Q4H PRN 07/01/25 [History] meloxicam 15 mg tablet 15 mg PO QDAY 07/01/25 [History] Amlodipine, 2.5 mg daily Pravastatin 20 mg at bedtime Aspirin 81 mg daily Discharge Disposition Assessment: see hospital ourse Discharge Plan Discharge Plan Hospital Course: This is a 80-year-old male with significant tobacco abuse history who is presented with rest pain of both lower extremities and CT angiogram showing 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 Patient admitted on Sunday for evaluation and was seen by cardiology and cleared him for procedure. He was started on medications for b lood pressure and a statin for his cholesterol. He was taken to the operating suite on July 02 where he underwent bilateral external iliac stenting. He will need superficial femoral artery atherectomy and possible drug-eluting balloon angioplasty, possible stenting .Those to be done sequentially in the future. He may still require left open femoral endarterectomy and patch angioplasty as well. Postprocedure he had 1 small run of afibrillation treated with labetalol but the internal medicine design sales consultant felt that he could be discharged home safely. He will be discharged home on his usual medications plus aspirin 80 mg daily. Will follow-up with Dr. Gagan Garrett in 1 week. I have encouraged him not to continue smoking. Patient Disposition: 01 HOME, SELF-CARE Condition: Stable Health Concerns: Post Hospitalization: new medications and changes needed to prevent readmission or further decline. Pt educated and given instructions on all concerns. Care Plan Goals: Problem: Altered Tissue Perfusion Goal: Adequate Tissue Perfusion Instructions: Follow provided instructions. Follow up with primary physician as directed. Contact primary care physician or report to the closest Emergency Room if condition worsens. Plan of Treatment: Continue with present treatment and follow up plan. Pt is to keep follow up appointment as instructed and take medications as ordered. Assessment: see hospital mcourse Prescriptions: New aspirin 81 mg Tablet,Chewable 81 mg PO DAILY Qty: 240 0RF alprazolam 0.5 mg Tablet,Disintegrating 1 mg PO BID MDD 2 PRNQty: 60 1RF pravastatin 40 mg Tablet 20 mg PO HS Qty: 60 2RF amlodipine 2.5 mg Tablet 2.5 mg PO DAILY Qty: 60 2RF escitalopram oxalate 10 mg Tablet 10 mg PO DAILY Qty: 60 2RF Continued alprazolam 2 mg tablet 2 - 4 mg PO QDAY MDD 2 PRN (Reason: anxiety) 30 Days Qty: 45 0RF escitalopram oxalate 10 mg tablet 10 mg PO QDAY 30 Days Qty: 30 2RF gabapentin 100 mg capsule 100 mg PO QDAY 30 Days Qty: 30 0RF hydrocodone-acetaminophen 10-325 mg tablet 1 tab PO TID MDD 3 PRN (Reason: pain) 30 Days Qty: 90 0RF tamsulosin 0.4 mg capsule 0.8 mg PO QDAY Qty: 30 3RF tizanidine 4 mg tablet 4 mg PO QDAY PRN Rx Instructions: FreeTextSi (one) Tablet daily, as needed; Refills: 2; Provider: Raffaele Moyer meloxicam 15 mg tablet 15 mg PO QDAY albuterol sulfate 90 mcg/actuation Hfa Aerosol Inhaler 90 mcg INHALATION Q4H PRN Orders to Discharge Patient Discharge Orders: Discharge (Routine); Ordered 07/02/25 Ordered By: Shemar Garrett Follow ups/Referrals Follow ups/Referrals: João Castorena MD [Primary Care Provider, MEDICAL] - 1 WEEK Shemar Garrett [STAFF PHYSICIAN, Unknown] - 07/15/25 9:30 am Instructions Instructions: Angiogram, [id number], Leg Pain That Comes and Goes (Intermittent Claudication): What to Know, Atherosclerosis, Endovascular Therapy for Peripheral Vascular Disease: What to Know After, Preventing Problems After Surgery, Surgery to Remove Plaque from the Femoral Artery (Femoral Endarterectomy): What to Know After, Femoropopliteal Bypass Stand Alone Forms: Find Help Web Site, Post Hospital Follow Up Care Print Language: ITALIAN
[2025-07-02] MEDS: PERCOCET TAB 5/325 MG PO PRN (22:01)
[2025-07-03 05:20] LABS: MEAN PLATELET VOLUME 7.9 fL (7.4-11.0); RED CELL DISTRIBUTION WIDTH 14.8 % (11.6-16.5)
[2025-07-03 05:30] LABS: COR CA(FOR HYPOALB) 9.3 mg/dL (8.5-10.1); CREATININE 0.73 mg/dL (0.70-1.30); eGFR NON BLACK RACES > 60 (>60)
[2025-07-03] MEDS ORDERED: CONSULT PHARMACY - POTASSIUM & MAGNESIUM XX SCH (06:00)
[2025-07-03 08:07] VITALS: BP 142/64; PULSE 97; RESP 16; TEMP 97.4
[2025-07-03] MEDS: K-DUR TAB 20 MEQ PO SCH (08:12)
[2025-07-03] MEDS: MAG-OX TAB PO SCH (08:13)
[2025-07-03] MEDS: NORVASC TAB 2.5 MG ONE (08:14)
[2025-07-03] MEDS: LEXAPRO ONE (08:14)
[2025-07-03 08:36] VITALS: O2SAT 95
--- NOTE | 2025-07-09 12:46 | PCM.PROG ---
Progress Note Progress Note for Day of Date of Exam: 07/02/25 Subjective Subjective: Patient seen at bedside, no acute events overnight. He is currently admitted for vascular intervention of severe PVD. Cardio consulted and has cleared patient for procedure, which he will have this morning. Labs/imaging reviewed: Plan: Follow cardio and vascular recommendations. Monitor blood pressure. Continue home meds. Replace electrolytes as per protocol. Monitor AM labs/imaging. Past Medical Family Social History Allergies: Allergies Iodinated Contrast Media Adverse Reaction (Unknown, Verified 07/07/25 15:07) PT STATED HE FELT LIKE HE WAS DYING AFTER RECEIVING CONTRAST FOR CTA. Review of Systems ROS changes noted: see HPI Physical Exam Oriented: Normal Respiratory: Generalized and Diminished Cardiovascular: Normal Auscultation: Bowel Sounds: Normal Tenderness: Normal Skin: Normal Musculoskeletal: Normal Psychiatric: Normal Mood Description: Calm Affect: Normal Speech Pattern: Clear and Appropriate Laboratory and Diagnostics 07/03/25 04:41 07/03/25 04:41 Labs: Laboratory WBC 7.5 X10^3/uL (3.6-10.0) 07/03/25 04:41 RBC 3.32 X10^6/uL (4.7-6.0) L 07/03/25 04:41 Hgb 9.3 g/dL (13.5-18.0) L D 07/03/25 04:41 Hct 27.0 % (42.0-54.0) L 07/03/25 04:41 MCV 81.4 fL (80.0-100.0) 07/03/25 04:41 MCH 28.1 pg (27.0-34.0) 07/03/25 04:41 MCHC 34.6 g/dL (33.0-35.0) 07/03/25 04:41 RDW 14.8 % (11.6-16.5) 07/03/25 04:41 Plt Count 213 X10^3/uL (150.0-450.0) 07/03/25 04:41 MPV 7.9 fL (7.4-11.0) 07/03/25 04:41 Neut % (Auto) 76.8 % (42.0-75.0) H 07/03/25 04:41 Lymph % (Auto) 11.8 % (21.0-51.0) L 07/03/25 04:41 [place] % (Auto) 9.2 % (0.0-13.0) 07/03/25 04:41 Eos % (Auto) 1.5 % (0.9-2.9) 07/03/25 04:41 Baso % (Auto) 0.7 % (0.2-1.0) 07/03/25 04:41 Neut # (Auto) 5.7 x10^3/uL (2.2-4.8) H 07/03/25 04:41 Lymph # (Auto) 0.9 X10^3/uL (1.3-2.9) L 07/03/25 04:41 [place] # (Auto) 0.7 x10^3/uL (0.3-0.8) 07/03/25 04:41 Eos # (Auto) 0.1 x10^3/uL (0.0-0.2) 07/03/25 04:41 Baso # (Auto) 0.1 X10^3/uL (0.0-0.1) 07/03/25 04:41 Absolute Nucleated RBC 0.1 /100WBC 07/03/25 04:41 PT 13.6 SECONDS (11.8-14.3) 06/30/25 09:46 INR Target Range - 06/30/25 09:46 INR 1.03 (0.8-1.3) 06/30/25 09:46 APTT 30.5 SECONDS (22.9-36.5) 06/30/25 09:46 PTT Comment - 06/30/25 09:46 Sodium 138 mmol/L (136-145) 07/03/25 04:41 Corrected Sodium TNP 07/03/25 04:41 Potassium 3.7 mmol/L (3.5-5.1) 07/03/25 04:41 Chloride 105 mmol/L (98-107) 07/03/25 04:41 Carbon Dioxide 29.7 mmol/L (21-32) 07/03/25 04:41 BUN 5 mg/dL (7-18) L 07/03/25 04:41 Creatinine 0.73 mg/dL (0.70-1.30) 07/03/25 04:41 Est GFR (MDRD) Af Amer > 60 (>60) 07/03/25 04:41 Est GFR (MDRD) Non-Af > 60 (>60) 07/03/25 04:41 Glucose 79 mg/dL (65-99) 07/03/25 04:41 Calcium 7.7 mg/dL (8.5-10.1) L 07/03/25 04:41 Corrected Calcium 9.3 mg/dL (8.5-10.1) 07/03/25 04:41 Magnesium 1.5 mg/dL (2.0-2.9) L 07/03/25 04:41 Total Bilirubin 0.40 mg/dL (0.2-1.0) 07/03/25 04:41 AST 21 Units/L (15-37) 07/03/25 04:41 ALT 12 Units/L (12-78) 07/03/25 04:41 Alkaline Phosphatase 82 Units/L (46-116) 07/03/25 04:41 B-Natriuretic Peptide 106 pg/mL (0-79) H 06/30/25 09:46 Total Protein 4.6 g/dL (6.4-8.2) L 07/03/25 04:41 Albumin 2.0 g/dL (3.4-5.0) L 07/03/25 04:41 Globulin 2.6 g/dL (2.5-4.5) 07/03/25 04:41 Albumin/Globulin Ratio 0.8 Ratio (1.1-2.1) L 07/03/25 04:41 Blood Type O POSITIVE 07/02/25 07:31 Antibody Screen Negative 07/02/25 07:31 Plan (1) PVD (peripheral vascular disease): Status: Acute (2) Tobacco use: Status: Acute (3) Chronic obstructive pulmonary disease: Status: Chronic Qualifiers: COPD type: unspecified COPD Qualified Code(s): J44.9 - Chronic obstructive pulmonary disease, unspecified (4) Interstitial lung disease: Status: Acute (5) Hyperlipidemia: Status: Acute (6) Preop cardiovascular exam: Status: Acute
--- NOTE | 2025-07-09 12:50 | PCM.PROG ---
Progress Note Progress Note for Day of Date of Exam: 07/03/25 Subjective Subjective: Patient is s/p bilateral external iliac stenting. He will need superficial femoral artery atherectomy and possible drug-eluting balloon angioplasty, possible stenting at a later date. He is doing well and has already dressed to go home. Patient is in stable condition. Instructed follow-up with vascular outpatient. Past Medical Family Social History Allergies: Allergies Iodinated Contrast Media Adverse Reaction (Unknown, Verified 07/07/25 15:07) PT STATED HE FELT LIKE HE WAS DYING AFTER RECEIVING CONTRAST FOR CTA. Review of Systems ROS changes noted: see HPI Physical Exam Oriented: Normal Respiratory: Generalized and Diminished Cardiovascular: Normal Auscultation: Bowel Sounds: Normal Tenderness: Normal Skin: Normal Musculoskeletal: Normal Psychiatric: Normal Mood Description: Calm Affect: Normal Speech Pattern: Clear and Appropriate Laboratory and Diagnostics 07/03/25 04:41 07/03/25 04:41 Labs: Laboratory WBC 7.5 X10^3/uL (3.6-10.0) 07/03/25 04:41 RBC 3.32 X10^6/uL (4.7-6.0) L 07/03/25 04:41 Hgb 9.3 g/dL (13.5-18.0) L D 07/03/25 04:41 Hct 27.0 % (42.0-54.0) L 07/03/25 04:41 MCV 81.4 fL (80.0-100.0) 07/03/25 04:41 MCH 28.1 pg (27.0-34.0) 07/03/25 04:41 MCHC 34.6 g/dL (33.0-35.0) 07/03/25 04:41 RDW 14.8 % (11.6-16.5) 07/03/25 04:41 Plt Count 213 X10^3/uL (150.0-450.0) 07/03/25 04:41 MPV 7.9 fL (7.4-11.0) 07/03/25 04:41 Neut % (Auto) 76.8 % (42.0-75.0) H 07/03/25 04:41 Lymph % (Auto) 11.8 % (21.0-51.0) L 07/03/25 04:41 [place] % (Auto) 9.2 % (0.0-13.0) 07/03/25 04:41 Eos % (Auto) 1.5 % (0.9-2.9) 07/03/25 04:41 Baso % (Auto) 0.7 % (0.2-1.0) 07/03/25 04:41 Neut # (Auto) 5.7 x10^3/uL (2.2-4.8) H 07/03/25 04:41 Lymph # (Auto) 0.9 X10^3/uL (1.3-2.9) L 07/03/25 04:41 [place] # (Auto) 0.7 x10^3/uL (0.3-0.8) 07/03/25 04:41 Eos # (Auto) 0.1 x10^3/uL (0.0-0.2) 07/03/25 04:41 Baso # (Auto) 0.1 X10^3/uL (0.0-0.1) 07/03/25 04:41 Absolute Nucleated RBC 0.1 /100WBC 07/03/25 04:41 PT 13.6 SECONDS (11.8-14.3) 06/30/25 09:46 INR Target Range - 06/30/25 09:46 INR 1.03 (0.8-1.3) 06/30/25 09:46 APTT 30.5 SECONDS (22.9-36.5) 06/30/25 09:46 PTT Comment - 06/30/25 09:46 Sodium 138 mmol/L (136-145) 07/03/25 04:41 Corrected Sodium TNP 07/03/25 04:41 Potassium 3.7 mmol/L (3.5-5.1) 07/03/25 04:41 Chloride 105 mmol/L (98-107) 07/03/25 04:41 Carbon Dioxide 29.7 mmol/L (21-32) 07/03/25 04:41 BUN 5 mg/dL (7-18) L 07/03/25 04:41 Creatinine 0.73 mg/dL (0.70-1.30) 07/03/25 04:41 Est GFR (MDRD) Af Amer > 60 (>60) 07/03/25 04:41 Est GFR (MDRD) Non-Af > 60 (>60) 07/03/25 04:41 Glucose 79 mg/dL (65-99) 07/03/25 04:41 Calcium 7.7 mg/dL (8.5-10.1) L 07/03/25 04:41 Corrected Calcium 9.3 mg/dL (8.5-10.1) 07/03/25 04:41 Magnesium 1.5 mg/dL (2.0-2.9) L 07/03/25 04:41 Total Bilirubin 0.40 mg/dL (0.2-1.0) 07/03/25 04:41 AST 21 Units/L (15-37) 07/03/25 04:41 ALT 12 Units/L (12-78) 07/03/25 04:41 Alkaline Phosphatase 82 Units/L (46-116) 07/03/25 04:41 B-Natriuretic Peptide 106 pg/mL (0-79) H 06/30/25 09:46 Total Protein 4.6 g/dL (6.4-8.2) L 07/03/25 04:41 Albumin 2.0 g/dL (3.4-5.0) L 07/03/25 04:41 Globulin 2.6 g/dL (2.5-4.5) 07/03/25 04:41 Albumin/Globulin Ratio 0.8 Ratio (1.1-2.1) L 07/03/25 04:41 Blood Type O POSITIVE 07/02/25 07:31 Antibody Screen Negative 07/02/25 07:31 Plan (1) PVD (peripheral vascular disease): Status: Acute (2) Tobacco use: Status: Acute (3) Chronic obstructive pulmonary disease: Status: Chronic Qualifiers: COPD type: unspecified COPD Qualified Code(s): J44.9 - Chronic obstructive pulmonary disease, unspecified (4) Interstitial lung disease: Status: Acute (5) Hyperlipidemia: Status: Acute (6) Preop cardiovascular exam: Status: Acute
== END 2025-07-03 08:40 | disposition home or self-care (01) ==
LOC: MED/SURG
PROVIDERS: ADMIT Surgery; ATTEND Surgery
DX: J44.9 Chronic obstructive pulmonary disease, unspecified; E83.42 Hypomagnesemia; I73.89 Other specified peripheral vascular diseases; F32.89 Other specified depressive episodes; E83.51 Hypocalcemia; J98.2 Interstitial emphysema; R00.0 Tachycardia, unspecified; Z59.868 Other specified financial insecurity; F41.8 Other specified anxiety disorders; Z72.0 Tobacco use; I44.0 Atrioventricular block, first degree; N40.1 Benign prostatic hyperplasia with lower urinary tract symptoms; E78.5 Hyperlipidemia, unspecified; I48.91 Unspecified atrial fibrillation; Z01.810 Encounter for preprocedural cardiovascular examination; R93.89 Abnormal findings on diagnostic imaging of other specified body structures; I70.223 Atherosclerosis of native arteries of extremities with rest pain, bilateral legs

== ENCOUNTER 2025-07-07 14:45 | Observation (INO) ==
--- NOTE | 2025-07-07 15:32 | DR.GENAD ---
HPI Time Seen Time Seen by Provider: 07/07/25 15:07 PCP Primary Care Physician: Raffaele Complaint/Symptoms Chief Complaint Doctors Comments: Patient recently had vascular procedure on July 02. Patient states he has had some bruising since then but has had some lower abdominal pain that is worsening. Patient denies chest pain, shortness of breath, lightheadedness or dizziness. Patient states pain improves when he stands and is worse with moving. He denies nausea vomiting diarrhea or constipation. Chief Complaint:: PT states he recently had surgery to have stents placed here at [facility] with Dr. Garrett. Advised that Dr. Garrett went in his upper left arm and left groin to place stents. advised that she's worried about the wound sites since they have large bruises. Bandages are dry and intact. Pt also c/o LLQ pain that is sharp when he stands up. He called Dr. Castorena and has been on Hydrocodone. Pt states when he lays down the pain improves. Pt last had a BM yesterday and states that it was normal for him. COVID-19 Coronavirus risk:travel/contact w/high risk person: No Has patient experienced Coronavirus symptoms: No Source History Provided: Patient and Significant Other Mode of Arrival Mode of Arrival: Wheelchair Timing Onset of Chief Complaint: 07/03/25 PMH PMH Past Medical History: Yes Past Medical History: Coronary Artery Disease Past Surgical History: Yes Surgical History: Angioplasty/Stents Family History History of Family Medical Conditions: Yes Family Medical History: Heart Failure Social History Have you used tobacco products in the last 12 months: Yes Type of Tobacco Use: Cigarettes Alcohol Use: None Do you use any recreational Drugs:: No Lives With: Spouse Lives Where: Home Travel Risk Coronavirus risk:travel/contact w/high risk person: No Has patient experienced Coronavirus symptoms: No Infectious screening Have you traveled outside the country in the last 6 months?: No Isolation: Standard ROS Review of Systems Constitutional: No Symptoms Reported; negative Fever Eyes: No Symptoms Reported ENTM: No Symptoms Reported Respiratoy: No Symptoms Reported Cardiovascular: No Symptoms Reported; negative Chest Pain, Edema, Palpitations or Syncope Gastrointestinal/Abdominal: See HPI and Abdominal Pain; negative Constipation, Diarrhea, Nausea or Vomiting Genitourinary: No Symptoms Reported Neurological: No Symptoms Reported Musculoskeletal: No Symptoms Reported Integumentary: No Symptoms Reported Hematologic/Lymphatic: No Symptoms Reported Endocrine: No Symptoms Reported Psychiatric: No Symptoms Reported All Other Systems: Reviewed and Negative PE Vital Signs Vitals: Vital Signs Temperature 97.4 F Pulse Rate 75 Pulse Rate 77 Pulse Rate 82 Pulse Rate 75 Pulse Rate 92 Respiratory Rate 21 Blood Pressure 123/58 O2 Sat by Pulse Oximetry 95 O2 Sat by Pulse Oximetry 95 O2 Sat by Pulse Oximetry 96 O2 Sat by Pulse Oximetry 96 General Limitations: No Limitations General Appearance: Alert and In No Apparent Distress Head Head Exam: Normal Inspection Eyes Eye exam: Normal Appearance Neck Neck Exam: Normal Inspection Chest Chest Inspection: Normal Inspection Respiratory Respiratory Exam: Normal Lung Sounds Bilat Respiratory Exam: Bilateral: Clear to Auscultation Cardiovascular Cardiovascular Exam: Regular Rate and Normal Rhythm Abdominal Exam Abdominal Exam: Normal Inspection, Normal Bowel Sounds, Soft, Tenderness (Suprapubic and right lower quadrant tenderness) and Guarding; negative Distention, Rebound, Rigidity, Organomegaly or Ascites Extremities Extremities Exam: Normal Inspection Back Back Exam: Normal Inspection Neurologic Neurological Exam: Alert and Oriented X3 Psychiatric Psychiatric Exam: Normal Affect and Normal Mood Skin Skin Exam: Warm, Dry, Intact and Normal Color COURSE Treatment Treatment: Dr. Garrett was kind of coming in and see the patient in the emergency room. He has made recommendations for imaging and after review of imaging he has recommended admission to the medical floor. Consultation Called: 19:20 Consultation Comments: Discussed case with Dr. Garrett and he is agreeable to admission. ROR Labs Reviewed Laboratory Results Reviewed?: Yes 07/07/25 15:47 07/07/25 15:47 Laboratory: WBC 11.5 X10^3/uL (3.6-10.0) H 07/07/25 15:47 RBC 3.90 X10^6/uL (4.7-6.0) L 07/07/25 15:47 Hgb 10.9 g/dL (13.5-18.0) L 07/07/25 15:47 Hct 32.3 % (42.0-54.0) L 07/07/25 15:47 MCV 82.7 fL (80.0-100.0) 07/07/25 15:47 MCH 27.9 pg (27.0-34.0) 07/07/25 15:47 MCHC 33.8 g/dL (33.0-35.0) 07/07/25 15:47 RDW 15.2 % (11.6-16.5) 07/07/25 15:47 Plt Count 349 X10^3/uL (150.0-450.0) 07/07/25 15:47 MPV 7.3 fL (7.4-11.0) L 07/07/25 15:47 Neut % (Auto) 82.2 % (42.0-75.0) H 07/07/25 15:47 Lymph % (Auto) 7.3 % (21.0-51.0) L 07/07/25 15:47 [place] % (Auto) 8.4 % (0.0-13.0) 07/07/25 15:47 Eos % (Auto) 1.3 % (0.9-2.9) 07/07/25 15:47 Baso % (Auto) 0.8 % (0.2-1.0) 07/07/25 15:47 Neut # (Auto) 9.5 x10^3/uL (2.2-4.8) H 07/07/25 15:47 Lymph # (Auto) 0.8 X10^3/uL (1.3-2.9) L 07/07/25 15:47 [place] # (Auto) 1.0 x10^3/uL (0.3-0.8) H 07/07/25 15:47 Eos # (Auto) 0.2 x10^3/uL (0.0-0.2) 07/07/25 15:47 Baso # (Auto) 0.1 X10^3/uL (0.0-0.1) 07/07/25 15:47 Absolute Nucleated RBC 0.1 /100WBC 07/07/25 15:47 Sodium 131 mmol/L (136-145) L 07/07/25 15:47 Corrected Sodium 131 mmol/L (136-145) L 07/07/25 15:47 Potassium 3.8 mmol/L (3.5-5.1) 07/07/25 15:47 Chloride 97 mmol/L (98-107) L 07/07/25 15:47 Carbon Dioxide 33.9 mmol/L (21-32) H 07/07/25 15:47 BUN 12 mg/dL (7-18) 07/07/25 15:47 Creatinine 1.12 mg/dL (0.70-1.30) 07/07/25 15:47 Est GFR (MDRD) Af Amer > 60 (>60) 07/07/25 15:47 Est GFR (MDRD) Non-Af > 60 (>60) 07/07/25 15:47 Glucose 116 mg/dL (65-99) H 07/07/25 15:47 Calcium 8.2 mg/dL (8.5-10.1) L 07/07/25 15:47 Corrected Calcium 9.6 mg/dL (8.5-10.1) 07/07/25 15:47 Total Bilirubin 1.10 mg/dL (0.2-1.0) H 07/07/25 15:47 AST 25 Units/L (15-37) 07/07/25 15:47 ALT 14 Units/L (12-78) 07/07/25 15:47 Alkaline Phosphatase 96 Units/L (46-116) 07/07/25 15:47 Total Protein 6.1 g/dL (6.4-8.2) L 07/07/25 15:47 Albumin 2.3 g/dL (3.4-5.0) L 07/07/25 15:47 Globulin 3.8 g/dL (2.5-4.5) 07/07/25 15:47 Albumin/Globulin Ratio 0.6 Ratio (1.1-2.1) L 07/07/25 15:47 Specimen Type Clean catch urine 07/07/25 18:39 Urine Color Yellow (YELLOW) 07/07/25 18:39 Urine Appearance Clear (CLEAR) 07/07/25 18:39 Urine pH 7.0 (5.0 - 8.0) 07/07/25 18:39 Ur Specific [place] 1.010 (1.000-1.030) 07/07/25 18:39 Urine Protein 1+ (NEGATIVE) 07/07/25 18:39 Urine Glucose (UA) Negative (NEGATIVE) 07/07/25 18:39 Urine Ketones Negative (NEGATIVE) 07/07/25 18:39 Urine Blood Negative (NEGATIVE) 07/07/25 18:39 Urine Nitrite Negative (NEGATIVE) 07/07/25 18:39 Urine Bilirubin Negative (NEGATIVE) 07/07/25 18:39 Urine Urobilinogen Normal (NORMAL) 07/07/25 18:39 Ur Leukocyte Esterase Negative (NEGATIVE) 07/07/25 18:39 Urine RBC None seen /HPF (0-3) 07/07/25 18:39 Urine WBC None seen /HPF (0-5) 07/07/25 18:39 Ur Squamous Epith Cells Negative /HPF (NEGATIVE) 07/07/25 18:39 Urine Bacteria Negative /HPF (NEGATIVE) 07/07/25 18:39 Ur Culture Indicated? No/not indicated 07/07/25 18:39 Other Results Comments: Name: Rashid Gray : 1945 Sex: M Location: ER Order Number(s): [id number] Procedure(s):CT ABDOMEN/PELVIS W/O CON Ordering Physician: Miko Valdivia Primary Care: NFD,None Service Date: 07/07/25 Service Time: 1520 EXAM: ABDOMEN/PELVIS W/O CON HISTORY: Left lower quadrant abdominal pain; COMPARISON: CT angiography May 21, 2025 TECHNIQUE: CT of the abdomen and pelvis without intravenous contrast FINDINGS: Mild, nonspecific airspace and interstitial infiltrates are visible in the lung bases. There is trace left pleural fluid present. Sensitivity is reduced without intravenous contrast. The abdominal aorta tapers normally with extensive atherosclerotic plaque. Stents are noted in the bilateral iliac arterial branches. No liver mass. Normal gallbladder. Normal adrenal glands. No renal stones or hydronephrosis. Benign splenic calcifications. Severe atrophy of the pancreas. Stomach is not obstructed. There is a droplet of gas in the urinary bladder which is nonspecific. Extensive diverticulosis of the colon is present. Moderate volume of inspissated stool is noted throughout the colon. Along the right pericolic gutter there is heterogeneous high density material suggesting blood products/retroperitoneal hemorrhage representing a change in appearance from the comparison CTA exam. Correlation is needed clinically. A structure thought to represent the appendix appears air-filled. No free air. In the left inguinal region there is hyperdense ill-defined collections spanning 2.8 and 3.2 cm suggestive of hematomas. The small bowel is not obstructed. No free air or lymphadenopathy. No suspicious bony lesion. IMPRESSION: Moderate-sized high density collection in the right pericolic gutter suggests retroperitoneal hematoma/hemorrhage. Similar densities in the left inguinal region suggest small hematomas. Has there been attempted vascular access? No history is given in this regard. Clinical correlation is needed. If there has not been cause for hemorrhage, correlation with possible infectious or inflammatory process is advised. The possibility of active bleeding can not be assessed without the benefit of contrast. Close follow-up is advised. Additional findings as described. Future imaging should include intravenous contrast if clinically possible. All CT scans at this facility use dose modulation, iterative reconstruction, and/or weight based dosing when appropriate to reduce radiation dose to as low as reasonably achievable. THIS IS AN ELECTRONICALLY VERIFIED FINAL REPORT 07/07/2025 4:23 PM - Electronically signed by Franklin Haley MD Name: Rashid Gray : 1945 Sex: M Location: ER Order Number(s): [id number] Procedure(s):CT ABDOMEN/PELVIS WITH CON Ordering Physician: Miko Valdivia Primary Care: NFD,None Service Date: 07/07/25 Service Time: 1730 EXAM: CT ABDOMEN AND PELVIS WITH CONTRAST HISTORY: LLQ pain; 1 HOUR PREP COMPARISON: Comparison is made with a CTA that began in mid abdomen and extending into the lower extremities from May 21, 2025.. TECHNIQUE: Axial CT images were obtained through the abdomen and pelvis after the intravenous administration of contrast. Coronal and sagittal reformatted images were included. All CT scans at this facility use dose modulation, iterative reconstruction, and/or weight based dosing when appropriate to reduce radiation dose to as low as reasonably achievable. FINDINGS: LOWER THORAX: Mild pleural thickening versus very small pleural effusion posteriorly at the left lower lung zone. Mild calcified pleural plaquing posteromedially at the right lower lung zone. ABDOMEN: LIVER: Unremarkable. GALLBLADDER: Unremarkable. SPLEEN: Unremarkable. PANCREAS: Unremarkable. KIDNEYS: Kidneys are unremarkable. No obstructive uropathy. ADRENAL GLANDS: Unremarkable. ABDOMINAL AORTA: Calcifications of the abdominal aorta without aneurysmal dilatation. There has been interval placement of stent devices within each common iliac artery and each external iliac artery and while this is not a dedicated CTA these stents appear to be patent. Redemonstrated is occlusion of each SFA (these are not completely imaged on today's exam). There is a 1 cm pseudoaneurysm projecting anteriorly from the left PREVENTION COORDINATOR that was not present previously, see image 73 of series 3; no evidence for leakage from the pseudoaneurysm. LYMPH NODES: No evidence of enlarged nodes. GI TRACT: No evidence for intestinal obstruction. Scattered colonic diverticula without evidence of diverticulitis. ASCITES: No free fluid within the abdomen or pelvis. Interval development of a right pericolic retroperitoneal hematoma adjacent to the posterior aspect of the right colon and extending to the level of the right internal inguinal ring; this hematoma measures 5.6 x 3.6 cm in the axial plane and approximately 11 cm longitudinally. Interval development of a small hematoma adjacent to the left internal inguinal ring that measures 2.6 x 2.1 cm in the axial plane and measures about 3.4 cm longitudinally. There is another hematoma within the left groin adjacent to the level of the left common femoral artery which measures 2.4 x 1.4 x 2.5 cm. PNEUMOPERITONEUM: None. PELVIS: APPENDIX: Unremarkable. RECTOSIGMOID COLON: Sigmoid colon diverticulosis without evidence of diverticulitis. BLADDER: There is a tiny gas bubble within the lumen of the urinary bladder which may be due to recent instrumentation or may suggest presence of a gas-forming organism, correlate clinically. Urinary bladder is morphologically unremarkable. GENITALS: Prostate appears to be mildly enlarged. ASCITES: Mild presacral fluid/edema. LYMPH NODES: No evidence for enlarged nodes. INGUINAL HERNIA: None. BONES: No evidence for acute osseous findings. IMPRESSION: Appendix is unremarkable. Interval placement of arterial stents within the bilateral common iliac arteries and external iliac arteries. Interval development of a RIGHT pericolic retroperitoneal hematoma adjacent to the posterior aspect of the right colon and extending to the level of the right internal inguinal ring; this hematoma measures 5.6 x 3.6 cm in the axial plane and approximately 11 cm longitudinally. Interval development of a small hematoma adjacent to the LEFT internal inguinal ring that measures 2.6 x 2.1 cm in the axial plane and measures about 3.4 cm longitudinally. There is another hematoma within the LEFT groin adjacent to the level of the left common femoral artery which measures 2.4 x 1.4 x 2.5 cm. Interval development of a 1 cm pseudoaneurysm projecting anteriorly from the LEFT PREVENTION COORDINATOR, see image 73 of series 3; no evidence for leakage from this pseudoaneurysm. There is a tiny gas bubble within the lumen of the urinary bladder which may be due to recent instrumentation or may suggest presence of a gas-forming organism, correlate clinically. Other findings as above. See above for details. THIS IS AN ELECTRONICALLY VERIFIED FINAL REPORT 07/07/2025 7:06 PM - Electronically signed by Adan Boston DO Opioid Opioid Risk Tool Age (Xiang box if [id number]): No History of Preadolescent Sexual Abuse: No Total: 0 Total Score Risk Category: Low Risk Copyright: Saqib FUNG predicting aberrant behaviors Discharge Plan Diagnosis Discharge Problem: Retroperitoneal hematoma Discharge Plan Patient Disposition: ADMITTED INPATIENT Condition: Stable Prescriptions: No Action hydrocodone-acetaminophen 10-325 mg tablet 1 tab PO TID MDD 3 PRN (Reason: pain) 15 Days Qty: 45 0RF alprazolam 2 mg tablet 2 - 4 mg PO QDAY MDD 2 PRN (Reason: anxiety) 30 Days Qty: 45 0RF escitalopram oxalate 10 mg tablet 10 mg PO QDAY 30 Days Qty: 30 2RF gabapentin 100 mg capsule 100 mg PO QDAY 30 Days Qty: 30 0RF tamsulosin 0.4 mg capsule 0.8 mg PO QDAY Qty: 30 3RF tizanidine 4 mg tablet 4 mg PO QDAY PRN Rx Instructions: FreeTextSi (one) Tablet daily, as needed; Refills: 2; Provider: Raffaele Moyer meloxicam 15 mg tablet 15 mg PO QDAY albuterol sulfate 90 mcg/actuation Hfa Aerosol Inhaler 90 mcg INHALATION Q4H PRN aspirin 81 mg Tablet,Chewable 81 mg PO DAILY Qty: 240 0RF alprazolam 0.5 mg Tablet,Disintegrating 1 mg PO BID MDD 2 PRNQty: 60 1RF pravastatin 40 mg Tablet 20 mg PO HS Qty: 60 2RF amlodipine 2.5 mg Tablet 2.5 mg PO DAILY Qty: 60 2RF Health Concerns: Post Hospitalization: new medications and changes needed to prevent readmission or further decline. Pt educated and given instructions on all concerns. Plan of Treatment: Continue with present treatment and follow up plan. Pt is to keep follow up appointment as instructed and take medications as ordered. Orders to Discharge Patient Discharge Orders: Transfer (Routine); Ordered 07/07/25 Ordered By: Miko Valdivia Follow ups/Referrals Follow ups/Referrals: NFD,None [Primary Care Provider] - 3 days Instructions Stand Alone Forms: Find Help Web Site, Post Hospital Follow Up Care Print Language: BAHRAINI
[2025-07-07 16:01] LABS: MEAN PLATELET VOLUME 7.3 fL (7.4-11.0); RED CELL DISTRIBUTION WIDTH 15.2 % (11.6-16.5)
[2025-07-07 16:16] LABS: COR CA(FOR HYPOALB) 9.6 mg/dL (8.5-10.1); COR NA(FOR HYPERGLY) 131 mmol/L (136-145); CREATININE 1.12 mg/dL (0.70-1.30); eGFR NON BLACK RACES > 60 (>60)
[2025-07-07] MEDS: BENADRYL INJ 50 MG VIAL IVP ONE (16:19)
--- NOTE | 2025-07-07 16:26 | CT ---
EXAM: ABDOMEN/PELVIS W/O CON HISTORY: Left lower quadrant abdominal pain; COMPARISON: CT angiography May 21, 2025 TECHNIQUE: CT of the abdomen and pelvis without intravenous contrast FINDINGS: Mild, nonspecific airspace and interstitial infiltrates are visible in the lung bases. There is trace left pleural fluid present. Sensitivity is reduced without intravenous contrast. The abdominal aorta tapers normally with extensive atherosclerotic plaque. Stents are noted in the bilateral iliac arterial branches. No liver mass. Normal gallbladder. Normal adrenal glands. No renal stones or hydronephrosis. Benign splenic calcifications. Severe atrophy of the pancreas. Stomach is not obstructed. There is a droplet of gas in the urinary bladder which is nonspecific. Extensive diverticulosis of the colon is present. Moderate volume of inspissated stool is noted throughout the colon. Along the right pericolic gutter there is heterogeneous high density material suggesting blood products/retroperitoneal hemorrhage representing a change in appearance from the comparison CTA exam. Correlation is needed clinically. A structure thought to represent the appendix appears air-filled. No free air. In the left inguinal region there is hyperdense ill-defined collections spanning 2.8 and 3.2 cm suggestive of hematomas. The small bowel is not obstructed. No free air or lymphadenopathy. No suspicious bony lesion. IMPRESSION: Moderate-sized high density collection in the right pericolic gutter suggests retroperitoneal hematoma/hemorrhage. Similar densities in the left inguinal region suggest small hematomas. Has there been attempted vascular access? No history is given in this regard. Clinical correlation is needed. If there has not been cause for hemorrhage, correlation with possible infectious or inflammatory process is advised. The possibility of active bleeding can not be assessed without the benefit of contrast. Close follow-up is advised. Additional findings as described. Future imaging should include intravenous contrast if clinically possible. All CT scans at this facility use dose modulation, iterative reconstruction, and/or weight based dosing when appropriate to reduce radiation dose to as low as reasonably achievable. THIS IS AN ELECTRONICALLY VERIFIED FINAL REPORT 07/07/2025 4:23 PM - Electronically signed by Franklin Haley MD
[2025-07-07] MEDS: OMNIPAQUE 350 mg/mL 100 mL BTL IVP NR (17:57)
[2025-07-07 18:48] LABS: APPEARANCE,URINE CLEAR (CLEAR); BLOOD/HEMOGLOBIN,URINE NEGATIVE (NEGATIVE); LEUKOCYTE ESTERASE ,URINE NEGATIVE (NEGATIVE); NITRITES,URINE NEGATIVE (NEGATIVE)
[2025-07-07 19:02] LABS: SQUAMOUS EPITHELIAL CELL,UR NEGATIVE /HPF (NEGATIVE)
--- NOTE | 2025-07-07 19:10 | CT ---
EXAM: CT ABDOMEN AND PELVIS WITH CONTRAST HISTORY: LLQ pain; 1 HOUR PREP COMPARISON: Comparison is made with a CTA that began in mid abdomen and extending into the lower extremities from May 21, 2025.. TECHNIQUE: Axial CT images were obtained through the abdomen and pelvis after the intravenous administration of contrast. Coronal and sagittal reformatted images were included. All CT scans at this facility use dose modulation, iterative reconstruction, and/or weight based dosing when appropriate to reduce radiation dose to as low as reasonably achievable. FINDINGS: LOWER THORAX: Mild pleural thickening versus very small pleural effusion posteriorly at the left lower lung zone. Mild calcified pleural plaquing posteromedially at the right lower lung zone. ABDOMEN: LIVER: Unremarkable. GALLBLADDER: Unremarkable. SPLEEN: Unremarkable. PANCREAS: Unremarkable. KIDNEYS: Kidneys are unremarkable. No obstructive uropathy. ADRENAL GLANDS: Unremarkable. ABDOMINAL AORTA: Calcifications of the abdominal aorta without aneurysmal dilatation. There has been interval placement of stent devices within each common iliac artery and each external iliac artery and while this is not a dedicated CTA these stents appear to be patent. Redemonstrated is occlusion of each SFA (these are not completely imaged on today's exam). There is a 1 cm pseudoaneurysm projecting anteriorly from the left MOLDER INFLATED BALL that was not present previously, see image 73 of series 3; no evidence for leakage from the pseudoaneurysm. LYMPH NODES: No evidence of enlarged nodes. GI TRACT: No evidence for intestinal obstruction. Scattered colonic diverticula without evidence of diverticulitis. ASCITES: No free fluid within the abdomen or pelvis. Interval development of a right pericolic retroperitoneal hematoma adjacent to the posterior aspect of the right colon and extending to the level of the right internal inguinal ring; this hematoma measures 5.6 x 3.6 cm in the axial plane and approximately 11 cm longitudinally. Interval development of a small hematoma adjacent to the left internal inguinal ring that measures 2.6 x 2.1 cm in the axial plane and measures about 3.4 cm longitudinally. There is another hematoma within the left groin adjacent to the level of the left common femoral artery which measures 2.4 x 1.4 x 2.5 cm. PNEUMOPERITONEUM: None. PELVIS: APPENDIX: Unremarkable. RECTOSIGMOID COLON: Sigmoid colon diverticulosis without evidence of diverticulitis. BLADDER: There is a tiny gas bubble within the lumen of the urinary bladder which may be due to recent instrumentation or may suggest presence of a gas-forming organism, correlate clinically. Urinary bladder is morphologically unremarkable. GENITALS: Prostate appears to be mildly enlarged. ASCITES: Mild presacral fluid/edema. LYMPH NODES: No evidence for enlarged nodes. INGUINAL HERNIA: None. BONES: No evidence for acute osseous findings. IMPRESSION: Appendix is unremarkable. Interval placement of arterial stents within the bilateral common iliac arteries and external iliac arteries. Interval development of a RIGHT pericolic retroperitoneal hematoma adjacent to the posterior aspect of the right colon and extending to the level of the right internal inguinal ring; this hematoma measures 5.6 x 3.6 cm in the axial plane and approximately 11 cm longitudinally. Interval development of a small hematoma adjacent to the LEFT internal inguinal ring that measures 2.6 x 2.1 cm in the axial plane and measures about 3.4 cm longitudinally. There is another hematoma within the LEFT groin adjacent to the level of the left common femoral artery which measures 2.4 x 1.4 x 2.5 cm. Interval development of a 1 cm pseudoaneurysm projecting anteriorly from the LEFT MOLDER INFLATED BALL, see image 73 of series 3; no evidence for leakage from this pseudoaneurysm. There is a tiny gas bubble within the lumen of the urinary bladder which may be due to recent instrumentation or may suggest presence of a gas-forming organism, correlate clinically. Other findings as above. See above for details. THIS IS AN ELECTRONICALLY VERIFIED FINAL REPORT 07/07/2025 7:06 PM - Electronically signed by Adan Boston DO
[2025-07-07] MEDS ORDERED: DILAUDID INJ IVP PRN ×2 (20:22→20:51)
[2025-07-07] MEDS ORDERED: ULTRAM PO PRN (20:22)
[2025-07-07] MEDS ORDERED: CONSULT PHARMACY - POTASSIUM & MAGNESIUM XX SCH (20:22)
[2025-07-07] MEDS ORDERED: TYLENOL 325 MG TAB PO PRN (20:22)
[2025-07-07] MEDS ORDERED: PROVENTIL NEB TX 0.083% 2.5MG/ 3ML NEB PRN (20:33)
[2025-07-07 20:37] VITALS: BMI 22.1
[2025-07-07] MEDS: LR 1,000 ML IV 1,000 ML IV SCH (20:39)
[2025-07-07] MEDS: NORCO 5/325 MG TAB PO PRN (20:40)
[2025-07-07] MEDS: COLACE CAP 100 MG PO SCH (20:40)
[2025-07-07] MEDS: K-DUR TAB 20 MEQ PO SCH (20:40)
--- NOTE | 2025-07-07 22:00 | DR.H&P ---
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 At that time he underwent stenting of the bilateral common iliac and bilateral external iliac artery with plans to perform interventions sequentially of the lower extremities to deal with these 2 superficial femoral artery occlusions. At the time of the procedure on the iliac arteries he did develop a small leak from the distal right external iliac artery which was treated with a covered stent and resolved the bleeding. 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 Patient has done well and I have spoken with on the phone several times and he never mentioned had pain in the right lower quadrant and in the right back all weekend. He presented to and was evaluated in the emergency room and CT scan with IV contrast showed no extravasation or leak but the patient does have a retrograde hematoma around the cecum and right colon. Hemoglobin 1s 10.9 grams which is up from his discharge hemoglobin of 9.3 grams This explains his pain. He has been eating a diet and having regular bowel movements without difficulty. History of Present Illness History of Present Illness: as above Past Medical History Past Medical History: Coronary Artery Disease Past Surgical History Surgical History: Angioplasty/Stents Family History Family Medical History: Heart Failure Social History Does patient currently use any type of tobacco product: No Have you used tobacco products in the last 12 months: Yes Type of Tobacco Use: Cigarettes Alcohol Use: None Drug Use: None Medications Home Medications: Home Medications Medication Instructions Recorded Confirmed Type tizanidine 4 mg tablet 4 mg PO QDAY PRN 06/30/25 History albuterol sulfate 90 mcg/actuation 90 mcg inhalation Q 4H PRN 07/01/25 07/07/25 History aerosol inhaler meloxicam 15 mg tablet 15 mg PO QDAY 07/01/2507/07 History Allergies Allergies Allergy/AdvReac Type Severity Reaction Status Date / Time Iodinated Contrast Media AdvReac Unknown Verified 07/07/25 15:07 Labs 07/07/25 15:47 07/07/25 15:47 Labs: Laboratory WBC 11.5 X10^3/uL (3.6-10.0) H 07/07/25 15:47 RBC 3.90 X10^6/uL (4.7-6.0) L 07/07/25 15:47 Hgb 10.9 g/dL (13.5-18.0) L 07/07/25 15:47 Hct 32.3 % (42.0-54.0) L 07/07/25 15:47 MCV 82.7 fL (80.0-100.0) 07/07/25 15:47 MCH 27.9 pg (27.0-34.0) 07/07/25 15:47 MCHC 33.8 g/dL (33.0-35.0) 07/07/25 15:47 RDW 15.2 % (11.6-16.5) 07/07/25 15:47 Plt Count 349 X10^3/uL (150.0-450.0) 07/07/25 15:47 MPV 7.3 fL (7.4-11.0) L 07/07/25 15:47 Neut % (Auto) 82.2 % (42.0-75.0) H 07/07/25 15:47 Lymph % (Auto) 7.3 % (21.0-51.0) L 07/07/25 15:47 [place] % (Auto) 8.4 % (0.0-13.0) 07/07/25 15:47 Eos % (Auto) 1.3 % (0.9-2.9) 07/07/25 15:47 Baso % (Auto) 0.8 % (0.2-1.0) 07/07/25 15:47 Neut # (Auto) 9.5 x10^3/uL (2.2-4.8) H 07/07/25 15:47 Lymph # (Auto) 0.8 X10^3/uL (1.3-2.9) L 07/07/25 15:47 Cecil # (Auto) 1.0 x10^3/uL (0.3-0.8) H 07/07/25 15:47 Eos # (Auto) 0.2 x10^3/uL (0.0-0.2) 07/07/25 15:47 Baso # (Auto) 0.1 X10^3/uL (0.0-0.1) 07/07/25 15:47 Absolute Nucleated RBC 0.1 /100WBC 07/07/25 15:47 Sodium 131 mmol/L (136-145) L 07/07/25 15:47 Corrected Sodium 131 mmol/L (136-145) L 07/07/25 15:47 Potassium 3.8 mmol/L (3.5-5.1) 07/07/25 15:47 Chloride 97 mmol/L (98-107) L 07/07/25 15:47 Carbon Dioxide 33.9 mmol/L (21-32) H 07/07/25 15:47 BUN 12 mg/dL (7-18) 07/07/25 15:47 Creatinine 1.12 mg/dL (0.70-1.30) 07/07/25 15:47 Est GFR (MDRD) Af Amer > 60 (>60) 07/07/25 15:47 Est GFR (MDRD) Non-Af > 60 (>60) 07/07/25 15:47 Glucose 116 mg/dL (65-99) H 07/07/25 15:47 Calcium 8.2 mg/dL (8.5-10.1) L 07/07/25 15:47 Corrected Calcium 9.6 mg/dL (8.5-10.1) 07/07/25 15:47 Total Bilirubin 1.10 mg/dL (0.2-1.0) H 07/07/25 15:47 AST 25 Units/L (15-37) 07/07/25 15:47 ALT 14 Units/L (12-78) 07/07/25 15:47 Alkaline Phosphatase 96 Units/L (46-116) 07/07/25 15:47 Total Protein 6.1 g/dL (6.4-8.2) L 07/07/25 15:47 Albumin 2.3 g/dL (3.4-5.0) L 07/07/25 15:47 Globulin 3.8 g/dL (2.5-4.5) 07/07/25 15:47 Albumin/Globulin Ratio 0.6 Ratio (1.1-2.1) L 07/07/25 15:47 Specimen Type Clean catch urine 07/07/25 18:39 Urine Color Yellow (YELLOW) 07/07/25 18:39 Urine Appearance Clear (CLEAR) 07/07/25 18:39 Urine pH 7.0 (5.0 - 8.0) 07/07/25 18:39 Ur Specific [place] 1.010 (1.000-1.030) 07/07/25 18:39 Urine Protein 1+ (NEGATIVE) 07/07/25 18:39 Urine Glucose (UA) Negative (NEGATIVE) 07/07/25 18:39 Urine Ketones Negative (NEGATIVE) 07/07/25 18:39 Urine Blood Negative (NEGATIVE) 07/07/25 18:39 Urine Nitrite Negative (NEGATIVE) 07/07/25 18:39 Urine Bilirubin Negative (NEGATIVE) 07/07/25 18:39 Urine Urobilinogen Normal (NORMAL) 07/07/25 18:39 Ur Leukocyte Esterase Negative (NEGATIVE) 07/07/25 18:39 Urine RBC None seen /HPF (0-3) 07/07/25 18:39 Urine WBC None seen /HPF (0-5) 07/07/25 18:39 Ur Squamous Epith Cells Negative /HPF (NEGATIVE) 07/07/25 18:39 Urine Bacteria Negative /HPF (NEGATIVE) 07/07/25 18:39 Ur Culture Indicated? No/not indicated 07/07/25 18:39 Review of Systems Constitutional: See HPI Eyes: No Symptoms Reported ENT: No Symptoms Reported Respiratory: No Symptoms Reported Cardiovascular: No Symptoms Reported Gastrointestinal: See HPI Genitourinary: No Symptoms Reported Musculoskeletal: No Symptoms Reported Skin: No Symptoms Reported Neurological: No Symptoms Reported Physical Exam Vital Signs: Vital Signs Temperature 97.9 F Temperature 97.4 F Pulse Rate [Brachial] 77 Pulse Rate 85 Pulse Rate 71 Pulse Rate 72 Pulse Rate 75 Pulse Rate 76 Pulse Rate 77 Pulse Rate 77 Pulse Rate 77 Pulse Rate 70 Pulse Rate 74 Pulse Rate 75 Pulse Rate 74 Pulse Rate 78 Pulse Rate 80 Pulse Rate 80 Pulse Rate 81 Pulse Rate 76 Pulse Rate 75 Pulse Rate 77 Pulse Rate 82 Pulse Rate 75 Pulse Rate 92 Respiratory Rate 17 Respiratory Rate 17 Respiratory Rate 21 Blood Pressure [Left Arm] 128/56 Blood Pressure 128/56 Blood Pressure 133/61 Blood Pressure 123/58 O2 Sat by Pulse Oximetry 95 O2 Sat by Pulse Oximetry 96 O2 Sat by Pulse Oximetry 96 O2 Sat by Pulse Oximetry 96 O2 Sat by Pulse Oximetry 95 O2 Sat by Pulse Oximetry 96 O2 Sat by Pulse Oximetry 98 O2 Sat by Pulse Oximetry 96 O2 Sat by Pulse Oximetry 97 O2 Sat by Pulse Oximetry 94 O2 Sat by Pulse Oximetry 95 O2 Sat by Pulse Oximetry 97 O2 Sat by Pulse Oximetry 95 O2 Sat by Pulse Oximetry 94 O2 Sat by Pulse Oximetry 90 O2 Sat by Pulse Oximetry 92 O2 Sat by Pulse Oximetry 97 O2 Sat by Pulse Oximetry 94 O2 Sat by Pulse Oximetry 95 O2 Sat by Pulse Oximetry 95 O2 Sat by Pulse Oximetry 96 O2 Sat by Pulse Oximetry 96 Oriented: Normal, Time, Person and Place Eyes: Normal Ear: Normal Nose: Normal Throat: Normal Respiratory: Clear Throughout Cardiovascular: Normal : Normal Auscultation: Bowel Sounds: Normal Palpation: Other (ecchymosis over pubic tubercles ) Tenderness: RLQ (no rebound or mass) Skin: Other (ecchmosis as noted above ) Musculoskeletal: Normal Psychiatric: Normal Mood Description: Anxious Affect: Normal Speech Pattern: Clear and Appropriate Assessment/Plan (1) Retroperitoneal hematoma: Status: Acute Plan: Patient will be admitted for observation. Will obtain CBC in AM. Control was pain. He will be on a clear liquid diet for now (2) PVD (peripheral vascular disease): Status: Acute Plan: CT scan shows iliac stent to be open. Patient will need outpatient treatment of the superficial femoral artery occlusions in the future. He has no tissue loss of the lower extremities and his pain is actually a much improved since we have stented the iliac arteries (3) Tobacco use: Status: Acute Plan: Encouraged him to stop smoking. Begin nicotine patch (4) Hyperlipidemia: Status: Acute Plan: Continue pravastatin (5) Chronic obstructive pulmonary disease: Qualifiers: COPD type: unspecified COPD Qualified Code(s): J44.9 - Chronic obstructive pulmonary disease, unspecified Status: Chronic Plan: Continue inhaler treatment that he is already on (6) Essential (primary) hypertension: Status: Acute Plan: On medications for his blood pressure Review H&P Reviewed: Yes Patient was examined?: Yes
[2025-07-07] MEDS: ZANAFLEX PO SCH (22:07)
[2025-07-08 06:34] LABS: MEAN PLATELET VOLUME 7.8 fL (7.4-11.0); RED CELL DISTRIBUTION WIDTH 15.0 % (11.6-16.5)
[2025-07-08 06:56] LABS: COR CA(FOR HYPOALB) 10.1 mg/dL (8.5-10.1); COR NA(FOR HYPERGLY) 132 mmol/L (136-145); CREATININE 0.97 mg/dL (0.70-1.30); eGFR NON BLACK RACES > 60 (>60)
[2025-07-08] MEDS ORDERED: NORVASC TAB 2.5 MG ONE (08:46)
[2025-07-08] MEDS ORDERED: LEXAPRO ONE (08:46)
[2025-07-08] MEDS ORDERED: PHARMACY CONSULT XX SCH (09:00)
[2025-07-08] MEDS: ALPRAZOLAM ODT PO SCH (09:02)
[2025-07-08] MEDS: NORVASC TAB 2.5 MG PO SCH (09:02)
[2025-07-08] MEDS: ASPIRIN EC 81 MG PO SCH (09:02)
[2025-07-08] MEDS: FLOMAX PO SCH (09:02)
[2025-07-08] MEDS: LEXAPRO PO SCH (09:06)
[2025-07-08 16:48] LABS: MEAN PLATELET VOLUME 7.0 fL (7.4-11.0); RED CELL DISTRIBUTION WIDTH 15.2 % (11.6-16.5)
[2025-07-08 17:05] LABS: COR CA(FOR HYPOALB) 9.8 mg/dL (8.5-10.1); CREATININE 1.08 mg/dL (0.70-1.30); eGFR NON BLACK RACES > 60 (>60)
[2025-07-08 17:24] LABS: BAND NEUTROPHILS % 3 % (0-10); PLATELET MORPHOLOGY COMMENT NORMAL (NORMAL)
[2025-07-08] MEDS: PRAVACHOL PO SCH (21:20)
[2025-07-08] MEDS: OMNIPAQUE 350 mg/mL 100 mL BTL 100 ML ONE (21:47)
[2025-07-08] MEDS: BENADRYL INJ 50 MG VIAL ONE (21:47)
--- NOTE | 2025-07-08 22:22 | NOTE.SOAP ---
Soap Note Note for Day of Date of Exam: 07/08/25 Subjective Data Subjective Data: Patient status post stenting of bilateral common iliac and external iliac arteries and had presented with abdominal pain and has right sided retroperitoneal hematoma. No obvious extravasation. Patient did have a covered stent placed in the distal external iliac for bleeding at the time of the initial procedure. All abdominal pain has resolved. Tolerating a diet. Objective Data Temperature: 98.0 F Pulse Rate: 79 Respiratory Rate: 16 Blood Pressure: 115/56 O2 Sat by Pulse Oximetry: 96 Objective Data: Abdominal pain resolved. Abdomen benign. Small amount of ecchymosis above his penis. Hemoglobin equal to 8.9 g. Hemoglobin was 9.7 g on admission. Assessment Assessment: Patient with retroperitoneal hematoma after iliac artery stenting. No active bleeding. Plan Plan: Continue to follow and will obtain repeat CBC in the AM. If hemoglobin stable will plan discharge
--- NOTE | 2025-07-09 01:16 | DR.OPNOTE ---
OP NOTE Pre-Op Diagnosis: Critical ischemia both legs, b/l EIA and right TWILA occlusion Post-Op Diagnosis: same .see findings Procedure Date Date Of Procedure: 07/02/25 Procedure: PROCEDURE: Diagnostic aortogram, diagnostic arteriogram right leg, diagnostic arteriogram left leg, stenting right external iliac artery, covered stent of right external iliac artery, stenting right common iliac artery, stenting left external iliac artery and drug-coated balloon angioplasty of the left common femoral artery NARRATIVE: The patient was taken to the operative suite and placed in the supine position. Both groins and both legs were prepped and draped in sterile fashion. Patient was given intravenous sedation supervised by myself. Timeout for the procedure obtained. Ultrasound used to identify the right femoral artery and the skin overlying it infiltrated with 0.5% Marcaine. Ultrasound used to guide puncture of the right femoral artery and a 0.012 inch guidewire placed. Incision made over the guidewire at the skin edge with a #11 knife blade and the micro sheath placed over the guidewire into the femoral artery. Small wire exchanged for a 0.035 inch a Advantage Glidewire and the micro sheath exchanged for a 6 [place] vascular sheath. Arteriogram carried out through the sheath showing complete occlusion of the right external iliac artery and right common iliac artery. Patient also noted to have an demonstrated left common iliac a rtery occlusion as well. I had no area of access from the left groin therefore from the left brachial area this was prepped and draped in sterile fashion. The skin overlying the left brachial artery infiltrated with 0.5 % Marcaine. Ultrasound used identify the left brachial artery and used to puncture the left brachial artery and a 0.012 inch guidewire placed. Incision made with guidewire with number 11 knife blade and microsheath placed. Small wire exchanged for 0.035 Advantage Glidewire and the micro sheath exchanged for a 6 [place] vascular sheath. Using fluoroscopy we guided the guidewire down the aorta from the left subclavian artery to the distal aorta. Omni catheter placed and aortogram carried out confirming the occlusion of both external ilic arteries and the left common iliac artery. Exams carried out of both lower extremities showing patent right common femoral artery with occluded right superficial femoral artery and reconstitution of right popliteal artery with good runoff of the right leg .On the left side the left common femoral artery was occluded as well as the left superficial femoral artery with reconstitution of the popliteal artery and good runoff of the left leg. Guidewire was placed down the right iliac artery with some difficulty into the right profunda artery . This was selective catheterization. Over the wire we placed right external iliac artery stent which was an Berna 7 mm x 120 mm stent and balloon dilated with a 7 mm balloon. The right common artery was dilated with a 7 mm x 40 mm [employer] Berna stent and dilated with a 7 mm balloon. Repeat arteriogram showed extravasation of blood at the distal aspect of the right external iliac artery and we quickly covered this with covered Viabahn 7 mm stent which was inflated with a 7 mm balloon . Repeat arteriogram showed no further extravasation. At this point the wire was backed up and then placed down the left side across the left external iliac artery occlusion into the left profuda artery and we predilated this with a [employer] 4 mm balloon and then placed a 7 mm and 150 mm Berna drug eluting stent in the left external iloiac artery and balloon dilated with a 7 mm balloon. Patient had noted to have occlusion of the left common femoral artery and we temporized by placing a [employer] 5 mm millimeter x 200 mmdrug-coated balloon inflated across the left common femoral artery for 3 minutes. Post procedure arteriogram showed excellent flow through both iliac arteries now. The patient had given 5000 units of heparin at the beginning of the case. Additional heparin, 3000 units had been given at 1 hour. No protamine reversal was necessary. The sheath in the left brachial artery was removed and a compressive band placed across this for hemostasis and the patient taken to same-day surgery in good condition. At the completion od surgery patient palpable femoral pulses bilateral. Femoral artery she had been removed and direct pressure held for 10 minutes. Type of Anesthesia: Local (0.5% Marcaine) Anesthesia Comment: Plus MAC Findings: Bilateral external iliac artery occlusion, right common iliac artery occlusion Type of Fluids Used:: Lactated Ringers Total Amount of Fluid Infused:: 1600cc Urine output: 300cc EBL: 200cc Hardware: Berna 7 mm x 40 mm stent, Berna 7 mm x 120 mm stent, and Viabahn 7 mm stent all placed right iliac artery, Berna 7 mm 140 mm stent placed left external iliac artery Complications:: none Needle/Sponge Count:: correct Disposition/Condition: Pt. tolerated procedure without difficulty. Taken to [facility] in stable condition.
[2025-07-09 05:48] LABS: MEAN PLATELET VOLUME 7.4 fL (7.4-11.0); RED CELL DISTRIBUTION WIDTH 15.2 % (11.6-16.5)
[2025-07-09] MEDS ORDERED: NORVASC TAB 2.5 MG ONE (07:42)
[2025-07-09] MEDS ORDERED: LEXAPRO ONE (07:42)
[2025-07-09 08:24] VITALS: BP 103/53
[2025-07-09 08:25] VITALS: PULSE 62; RESP 16; TEMP 97.4; O2SAT 98
--- NOTE | 2025-07-09 10:28 | W.DIS.FURT ---
Summary of Discharge Discharge Summary of Date Date of Exam: 07/09/25 Admission Date Date of Admission: 07/07/25 Admission Diagnosis Patient Problems (Updated 07/07/25 @ 21:58 by Shemar Garrett) Retroperitoneal hematoma (Acute) K68.3 Hospital Course: This is a 80-year-old male who had significant critical lower extremity ischemia with bilateral occluded iliac arteries and last week underwent stenting of the iliac arteries . He is scheduled for additional procedures for occluded superficial femoral arteries in the future. He was discharged home and presented back to the emergency room complaining of abdominal pain and CT scan with contrast was consistent with a retroperitineal hematoma. At the time of the initial procedure he had some extravasation from the distal external iliac artery which was treated with a covered stent and this resolved any further extravasation. He is now pain-free tolerating a diet and having regular bowel movements. Hemoglobin dropped to 8.5 but he is doing well. To be discharged today and keep his regular follow-up with me next week in the office Vital Signs: Vital Signs (72 hours) 07/07/25 14:59 07/07/25 17:05 07/07/25 17:07 Temperature 97.4 F L Pulse Rate 92 H 75 82 Pulse Rate [Brachial] Respiratory Rate 21 Blood Pressure 123/58 Blood Pressure [Left Arm] O2 Sat by Pulse Oximetry 96 96 Oxygen Delivery Method Room Air 07/07/25 17:15 07/07/25 17:30 07/07/25 17:45 Temperature Pulse Rate 77 75 76 Pulse Rate [Brachial] Respiratory Rate Blood Pressure Blood Pressure [Left Arm] O2 Sat by Pulse Oximetry 95 95 94 L Oxygen Delivery Method 07/07/25 18:00 07/07/25 18:12 07/07/25 18:15 Temperature Pulse Rate 81 80 80 Pulse Rate [Brachial] Respiratory Rate Blood Pressure Blood Pressure [Left Arm] O2 Sat by Pulse Oximetry 97 92 L 90 L Oxygen Delivery Method 07/07/25 18:20 07/07/25 18:30 07/07/25 18:40 Temperature Pulse Rate 78 74 75 Pulse Rate [Brachial] Respiratory Rate Blood Pressure Blood Pressure [Left Arm] O2 Sat by Pulse Oximetry 94 L 95 97 Oxygen Delivery Method 07/07/25 18:45 07/07/25 19:00 07/07/25 19:15 Temperature Pulse Rate 74 70 77 Pulse Rate [Brachial] Respiratory Rate Blood Pressure Blood Pressure [Left Arm] O2 Sat by Pulse Oximetry 95 94 L 97 Oxygen Delivery Method 07/07/25 19:20 07/07/25 19:30 07/07/25 19:40 Temperature Pulse Rate 77 77 76 Pulse Rate [Brachial] Respiratory Rate Blood Pressure Blood Pressure [Left Arm] O2 Sat by Pulse Oximetry 96 98 96 Oxygen Delivery Method 07/07/25 19:40 07/07/25 19:45 07/07/25 20:00 Temperature Pulse Rate 75 Pulse Rate [Brachial] Respiratory Rate Blood Pressure 133/61 128/56 Blood Pressure [Left Arm] O2 Sat by Pulse Oximetry 95 Oxygen Delivery Method 07/07/25 20:00 07/07/25 20:01 07/07/25 20:10 Temperature Pulse Rate 72 71 Pulse Rate [Brachial] Respiratory Rate Blood Pressure Blood Pressure [Left Arm] O2 Sat by Pulse Oximetry 96 96 Oxygen Delivery Method Room Air 07/07/25 20:10 07/07/25 20:40 07/07/25 20:42 Temperature 97.9 F Pulse Rate Pulse Rate [Brachial] 77 Respiratory Rate 17 17 Blood Pressure Blood Pressure [Left Arm] 128/56 O2 Sat by Pulse Oximetry 96 Oxygen Delivery Method Room Air Room Air 07/07/25 20:42 07/07/25 21:40 07/07/25 23:27 Temperature 97.9 F Pulse Rate 85 Pulse Rate [Brachial] 76 Respiratory Rate 17 17 Blood Pressure Blood Pressure [Left Arm] 112/53 O2 Sat by Pulse Oximetry 95 96 Oxygen Delivery Method Room Air 07/08/25 04:00 07/08/25 07:00 07/08/25 07:20 Temperature 97.6 F Pulse Rate Pulse Rate [Brachial] 64 Respiratory Rate 17 Blood Pressure Blood Pressure [Left Arm] 108/54 O2 Sat by Pulse Oximetry 97 Oxygen Delivery Method Room Air Room Air Room Air 07/08/25 08:00 07/08/25 09:00 07/08/25 12:00 Temperature 98.1 F 97.7 F Pulse Rate Pulse Rate [Brachial] 58 L 76 77 Respiratory Rate 18 16 Blood Pressure Blood Pressure [Left Arm] 105/52 106/54 107/49 O2 Sat by Pulse Oximetry 94 L 96 Oxygen Delivery Method Room Air Room Air 07/08/25 16:00 07/08/25 19:00 07/08/25 20:00 Temperature 97.7 F 98.0 F Pulse Rate Pulse Rate [Brachial] 83 79 Respiratory Rate 16 16 Blood Pressure Blood Pressure [Left Arm] 104/50 115/56 O2 Sat by Pulse Oximetry 96 96 Oxygen Delivery Method Room Air Room Air Room Air 07/08/25 21:20 07/08/25 22:20 07/08/25 22:20 Temperature 98.0 F Pulse Rate 79 Pulse Rate [Brachial] Respiratory Rate 20 16 16 Blood Pressure 115/56 Blood Pressure [Left Arm] O2 Sat by Pulse Oximetry 96 Oxygen Delivery Method 07/08/25 23:42 07/09/25 04:00 07/09/25 07:00 Temperature 98.1 F 98.4 F Pulse Rate Pulse Rate [Brachial] 71 71 Respiratory Rate 16 17 Blood Pressure Blood Pressure [Left Arm] 99/54 98/55 O2 Sat by Pulse Oximetry 98 97 Oxygen Delivery Method Room Air Room Air Room Air 07/09/25 07:12 07/09/25 08:00 07/09/25 08:15 Temperature 97.4 F L Pulse Rate Pulse Rate [Brachial] 62 Respiratory Rate 16 Blood Pressure Blood Pressure [Left Arm] 91/50 103/53 O2 Sat by Pulse Oximetry 98 Oxygen Delivery Method Room Air Room Air Labs: Laboratory Last Values WBC 5.4 X10^3/uL (3.6-10.0) 07/09/25 05:32 RBC 3.04 X10^6/uL (4.7-6.0) L 07/09/25 05:32 Hgb 8.5 g/dL (13.5-18.0) L 07/09/25 05:32 Hct 24.9 % (42.0-54.0) L 07/09/25 05:32 MCV 81.9 fL (80.0-100.0) 07/09/25 05:32 MCH 28.2 pg (27.0-34.0) 07/09/25 05:32 MCHC 34.4 g/dL (33.0-35.0) 07/09/25 05:32 RDW 15.2 % (11.6-16.5) 07/09/25 05:32 Plt Count 309 X10^3/uL (150.0-450.0) 07/09/25 05:32 Plt Count Comment Adequate (ADEQUATE) 07/08/25 16:39 MPV 7.4 fL (7.4-11.0) 07/09/25 05:32 Neut % (Auto) 69.1 % (42.0-75.0) 07/09/25 05:32 Lymph % (Auto) 14.3 % (21.0-51.0) L 07/09/25 05:32 [place] % (Auto) 12.0 % (0.0-13.0) 07/09/25 05:32 Eos % (Auto) 3.5 % (0.9-2.9) H 07/09/25 05:32 Baso % (Auto) 1.1 % (0.2-1.0) H 07/09/25 05:32 Neut # (Auto) 3.7 x10^3/uL (2.2-4.8) 07/09/25 05:32 Lymph # (Auto) 0.8 X10^3/uL (1.3-2.9) L 07/09/25 05:32 [place] # (Auto) 0.6 x10^3/uL (0.3-0.8) 07/09/25 05:32 Eos # (Auto) 0.2 x10^3/uL (0.0-0.2) 07/09/25 05:32 Baso # (Auto) 0.1 X10^3/uL (0.0-0.1) 07/09/25 05:32 Absolute Nucleated RBC 0.0 /100WBC 07/09/25 05:32 Total Counted 100 07/08/25 16:39 Neutrophils % (Manual) 77 % (39-76) H 07/08/25 16:39 Band Neutrophils % 3 % (0-10) 07/08/25 16:39 Lymphocytes % (Manual) 10 % (13-43) L 07/08/25 16:39 Monocytes % (Manual) 10 % (4-9) H 07/08/25 16:39 Plt Morphology Comment Normal (NORMAL) 07/08/25 16:39 RBC Morphology Normal (NORMAL) 07/08/25 16:39 Sodium 135 mmol/L (136-145) L 07/08/25 16:39 Corrected Sodium TNP 07/08/25 16:39 Potassium 3.9 mmol/L (3.5-5.1) 07/08/25 16:39 Chloride 100 mmol/L (98-107) 07/08/25 16:39 Carbon Dioxide 29.1 mmol/L (21-32) 07/08/25 16:39 BUN 17 mg/dL (7-18) 07/08/25 16:39 Creatinine 1.08 mg/dL (0.70-1.30) 07/08/25 16:39 Est GFR (MDRD) Af Amer > 60 (>60) 07/08/25 16:39 Est GFR (MDRD) Non-Af > 60 (>60) 07/08/25 16:39 Glucose 107 mg/dL (65-99) H 07/08/25 16:39 Calcium 8.1 mg/dL (8.5-10.1) L 07/08/25 16:39 Corrected Calcium 9.8 mg/dL (8.5-10.1) 07/08/25 16:39 Total Bilirubin 0.80 mg/dL (0.2-1.0) 07/08/25 16:39 AST 24 Units/L (15-37) 07/08/25 16:39 ALT 14 Units/L (12-78) 07/08/25 16:39 Alkaline Phosphatase 87 Units/L (46-116) 07/08/25 16:39 Total Protein 5.2 g/dL (6.4-8.2) L 07/08/25 16:39 Albumin 1.9 g/dL (3.4-5.0) L 07/08/25 16:39 Globulin 3.3 g/dL (2.5-4.5) 07/08/25 16:39 Albumin/Globulin Ratio 0.6 Ratio (1.1-2.1) L 07/08/25 16:39 Specimen Type Clean catch urine 07/07/25 18:39 Urine Color Yellow (YELLOW) 07/07/25 18:39 Urine Appearance Clear (CLEAR) 07/07/25 18:39 Urine pH 7.0 (5.0 - 8.0) 07/07/25 18:39 Ur Specific [place] 1.010 (1.000-1.030) 07/07/25 18:39 Urine Protein 1+ (NEGATIVE) 07/07/25 18:39 Urine Glucose (UA) Negative (NEGATIVE) 07/07/25 18:39 Urine Ketones Negative (NEGATIVE) 07/07/25 18:39 Urine Blood Negative (NEGATIVE) 07/07/25 18:39 Urine Nitrite Negative (NEGATIVE) 07/07/25 18:39 Urine Bilirubin Negative (NEGATIVE) 07/07/25 18:39 Urine Urobilinogen Normal (NORMAL) 07/07/25 18:39 Ur Leukocyte Esterase Negative (NEGATIVE) 07/07/25 18:39 Urine RBC None seen /HPF (0-3) 07/07/25 18:39 Urine WBC None seen /HPF (0-5) 07/07/25 18:39 Ur Squamous Epith Cells Negative /HPF (NEGATIVE) 07/07/25 18:39 Urine Bacteria Negative /HPF (NEGATIVE) 07/07/25 18:39 Ur Culture Indicated? No/not indicated 07/07/25 18:39 Reason For Visit: RETROPERITONEAL HEMATOMA Discharge Date Discharge Date: 07/09/25 Discharge Diagnosis All Active Problems (Updated 07/07/25 @ 21:58 by Shemar Garrett) Essential (primary) hypertension (Acute) Retroperitoneal hematoma (Acute) Preop cardiovascular exam (Acute) Hyperlipidemia (Acute) Interstitial lung disease (Acute) PVD (peripheral vascular disease) (Acute) Dermatitis (Acute) Annual physical exam (Acute) Tobacco use (Acute) BPH (benign prostatic hyperplasia) (Chronic) Chronic obstructive pulmonary disease (Chronic) Plan of Treatment: Continue with present treatment and follow up plan. Pt is to keep follow up appointment as instructed and take medications as ordered. Discharge Medications Discharge Medications: Iodinated Contrast Media Adverse Reaction (Unknown, Verified 07/07/25 15:07) Discharge Disposition Assessment: No distress noted. see hospital course Discharge Plan Discharge Plan Hospital Course: This is a 80-year-old male who had significant critical lower extremity ischemia with bilateral occluded iliac arteries and last week underwent stenting of the iliac arteries . He is scheduled for additional procedures for occluded superficial femoral arteries in the future. He was discharged home and presented back to the emergency room complaining of abdominal pain and CT scan with contrast was consistent with a retroperitineal hematoma. At the time of the initial procedure he had some extravasation from the distal external iliac artery which was treated with a covered stent and this resolved any further extravasation. He is now pain-free tolerating a diet and having regular bowel movements. Hemoglobin dropped to 8.5 but he is doing well. To be discharged today and keep his regular follow-up with me next week in the office Patient Disposition: 01 HOME, SELF-CARE Condition: Stable Health Concerns: Post Hospitalization: new medications and changes needed to prevent readmission or further decline. Pt educated and given instructions on all concerns. Care Plan Goals: Problem: Pain/Alteration in Comfort Goal: Improve/ Resolve Pain; Achieve Pain Tolerance Instructions: Take pain medications as prescribed. Contact your primary care provider if your pain is unrelieved or worsens. Follow up with primary care provider as directed. Plan of Treatment: Continue with present treatment and follow up plan. Pt is to keep follow up appointment as instructed and take medications as ordered. Assessment: No distress noted. see hospital course Prescription drug monitoring program results: PDMP was not reviewed Prescriptions: New oxycodone-acetaminophen [Percocet] 5-325 mg tablet 1 tab PO Q6H MDD 4 PRNQty: 30 0RF Continued alprazolam 2 mg tablet 2 - 4 mg PO QDAY MDD 2 PRN (Reason: anxiety) 30 Days Qty: 45 0RF escitalopram oxalate 10 mg tablet 10 mg PO QDAY 30 Days Qty: 30 2RF gabapentin 100 mg capsule 100 mg PO QDAY 30 Days Qty: 30 0RF tamsulosin 0.4 mg capsule 0.8 mg PO QDAY Qty: 30 3RF tizanidine 4 mg tablet 4 mg PO QDAY PRN Rx Instructions: FreeTextSi (one) Tablet daily, as needed; Refills: 2; Provider: Raffaele Moyer meloxicam 15 mg tablet 15 mg PO QDAY albuterol sulfate 90 mcg/actuation Hfa Aerosol Inhaler 90 mcg INHALATION Q4H PRN aspirin 81 mg Tablet,Chewable 81 mg PO DAILY Qty: 240 0RF alprazolam 0.5 mg Tablet,Disintegrating 1 mg PO BID MDD 2 PRNQty: 60 1RF pravastatin 40 mg Tablet 20 mg PO HS Qty: 60 2RF amlodipine 2.5 mg Tablet 2.5 mg PO DAILY Qty: 60 2RF Discontinued hydrocodone-acetaminophen 10-325 mg tablet 1 tab PO TID MDD 3 PRN (Reason: pain) 15 Days Qty: 45 0RF Orders to Discharge Patient Discharge Orders: Discharge (Routine); Ordered 07/09/25 Ordered By: Shemar Garrett Follow ups/Referrals Follow ups/Referrals: Shemar Garrett [STAFF PHYSICIAN, Unknown] - 07/15/25 9:30 am Instructions Instructions: Hematoma, [id number] Stand Alone Forms: Find Help Web Site, Post Hospital Follow Up Care Print Language: LATVIAN
== END 2025-07-09 10:30 | disposition home or self-care (01) ==
LOC: ER 14:47 → MED/SURG 14:47
PROVIDERS: ADMIT Surgery; ATTEND Surgery
DX: I70.223 Atherosclerosis of native arteries of extremities with rest pain, bilateral legs; I25.10 Atherosclerotic heart disease of native coronary artery without angina pectoris; E87.1 Hypo-osmolality and hyponatremia; I10 Essential (primary) hypertension; Z98.890 Other specified postprocedural states; D64.89 Other specified anemias; R10.32 Left lower quadrant pain; J44.9 Chronic obstructive pulmonary disease, unspecified; I73.89 Other specified peripheral vascular diseases; E78.5 Hyperlipidemia, unspecified; K68.3 Retroperitoneal hematoma; Z72.0 Tobacco use; E80.6 Other disorders of bilirubin metabolism; R73.09 Other abnormal glucose; R26.89 Other abnormalities of gait and mobility